=== PATIENT | male | born 1940 | race Caucasian/White ===

== ENCOUNTER → 2021-03-30 06:57 | Outpatient (CLI) | payer MEDICARE, SELFPAY ==
--- NOTE | 2021-03-30 07:00 | ECHOD_ITS ---
Reason For Study: Dyspnea/SOB Procedure This was a 2D Doppler, Color Flow transthoracic echocardiogram. Exam performed in department. Left Ventricle Normal LV size. Left ventricular systolic function is normal. The estimated ejection fraction is 55 %. Stage 1 diastolic dysfunction. No regional wall motion abnormalities noted. Right Ventricle Normal RV size. Normal systolic function. Atria Normal left atrium. Normal right atrium. Mitral Valve Bileaflet diffuse mitral valve thickening. Mild (1+) eccentric mitral valve insufficiency. Tricuspid Valve Normal tricuspid valve. Mild (1+) tricuspid valve insufficiency. Pulmonary artery systolic pressure is 25 mmHg. Aortic Valve Trisinus/trileaflet aortic valve. Mild (1+) aortic valve insufficiency. Pulmonic Valve Normal pulmonic valve. Great Vessels Mildly dilated aortic root. The pulmonary artery is normal size. Normal inferior vena cava. Pericardium/Pleural No pericardial effusion. MMode/2D Measurements & Calculations LVIDd: 5.1 cm IVSd: 1.2 cm Ao root diam: 3.8 cm LVIDs: 3.6 cm LVPWd: 0.88 cm RVDd: 3.6 cm FS: 30.7 % LAV(MOD-bp): 45.1 ml LVAd ap4: 29.6 cm2 SV(MOD-sp4): 50.6 ml LAV(MOD-bp) Indexed: 19.5 ml/m2 LVLd ap4: 8.6 cm LAV(MOD-sp2): 35.4 ml EDV(MOD-sp4): 83.1 ml LAV(MOD-sp4): 46.3 ml EDV(sp4-el): 86.4 ml LVAs ap4: 16.9 cm2 LVLs ap4: 7.7 cm ESV(MOD-sp4): 32.4 ml ESV(sp4-el): 31.5 ml EF(MOD-sp4): 60.9 % EF(sp4-el): 63.6 % SV(sp4-el): 55.0 ml LA A4 area: 19.0 cm2 LA dimension(2D): 4.0 cm RA A4 area: 11.7 cm2 Doppler Measurements & Calculations MV E max paxton: 48.3 cm/sec Lat Peak E' Paxton: 5.1 cm/sec Med Peak E' Paxton: 4.2 cm/sec MV A max paxton: 64.2 cm/sec E/E' lat: 9.5 E/E' med: 11.5 MV E/A: 0.75 Ao V2 max: 115.8 cm/sec AI max paxton: 383.3 cm/sec LV V1 max: 94.7 cm/sec Ao max P.4 mmHg AI max P.8 mmHg LV V1 max P.6 mmHg Ao V2 mean: 85.2 cm/sec Ao mean P.1 mmHg AI dec slope: 212.3 cm/sec2 Ao V2 VTI: 24.3 cm AI P1/2t: 528.8 msec PA V2 max: 118.4 cm/sec TR max paxton: 236.3 cm/sec TR max P.3 mmHg ECHO/Echo Complete Interpretation Summary Normal LV size. Left ventricular systolic function is normal. The estimated ejection fraction is 55 %. Stage 1 diastolic dysfunction. Mild (1+) aortic valve insufficiency. Pulmonary artery systolic pressure is 25 mmHg. Hepatic cyst noted Ordering Physician: Jeff Cody Referring Physician: Jorge Gill Performed By: Nava Dela Cruz, HUBERTCS, RVT
--- NOTE | 2021-03-30 11:55 | STRESSREP ---
Stress Test Report 80-year-old man with a history of known coronary artery disease status post previous angioplasty and stenting of the right coronary artery. Stress protocol: Resting EKG demonstrates normal sinus rhythm with a rate of 67 bpm normal intervals are noted resting blood pressure is 126/82 mmHg. The patient exercised according to regular Saman protocol, for a total duration of 3 minutes and 40 seconds. Patient completed 40 seconds into stage II of the Saman protocol the maximum heart rate attained was 1 and 33 bpm which was 95% of max infected heart rate the maximum workload was 6.2 metabolic equivalents. At rest there were no ST or T wave changes noted suggest ischemia and at peak exercise upsloping ST changes were noted with did not meet the criteria for ischemia. No clinical angina was noted the test was terminated due to shortness of breath. The peak blood pressure was 180/92 mmHg with a rate-pressure product of 20,250. Myocardial perfusion protocol. 14.1 mCi of technetium 99m sestamibi was injected at rest. The patient exercised according to regular Saman protocol for total duration of 3 minutes and 40 seconds and at peak exercise 44.5 mCi of technetium 99m sestamibi was injected stress images were obtained stress and rest images were reconstructed and compared in the short axis vertical long and horizontal long axis. Gated images were also obtained per Perfusion SPECT analysis: Review of the stress images demonstrate mild reduction of the mid inferior wall in terms of perfusion. The rest of the alba namely the septum anterior wall and lateral wall appeared to be well perfused. The resting images demonstrate normalization of perfusion in all alba suggesting mild mid inferior ischemia. Gated SPECT analysis: The gated ejection fraction is 58%. Conclusion: Abnormal exercise myocardial perfusion scan with mild mid inferior ischemia noted at a low to moderate workload. Preserved ejection fraction.
== END ==
PROVIDERS: PCP Family Medicine; Referring Provider Internal Medicine Cardiovascular Disease; Visit Provider Internal Medicine Cardiovascular Disease
DX: I25.10 Atherosclerotic heart disease of native coronary artery without angina pectoris (principal); I25.2 Old myocardial infarction; Z95.5 Presence of coronary angioplasty implant and graft; R06.02 Shortness of breath
CPT/HCPCS: 78452; 93017; 93306; A9500; A4216

== ENCOUNTER 2021-04-06 07:49 | Day surgery (SDC) | payer MEDICARE, SELFPAY ==
--- NOTE | 2021-04-01 10:11 | RAD_ITS ---
STUDY: X-RAY CHEST REASON FOR EXAM: Male, 80 years old. CAD TECHNIQUE: PA and lateral views of the chest. COMPARISON: None. FINDINGS: There are interstitial changes of the lungs. There is no demonstrated pleural abnormality. Normal size heart. Normal mediastinum and josafat. Normal visualized pulmonary arteries. Normal visualized aortic arch and descending thoracic aorta. There are diffuse degenerative changes of the visualized thoracic spine. Normal visualized ribs, clavicles, and shoulders. There is no demonstrated abnormality of the visualized soft tissue structures of the upper abdomen. RAD/Chest PA and Lateral IMPRESSION: Chronic interstitial changes, no superimposed acute pulmonary process Electronically Signed: Tim Estrella MD at 17:21 EST , Service support ,
[2021-04-01 11:40] LABS: Absolute Lymphocyte Count 1.34 X10^3/uL (0.83-4.51); Absolute Neutrophil Count 4.2 X10^3/uL (2.0-7.7); Basophil# 0.06 X10^3/uL; Basophil% 0.9 % (0-1); Eosinophil# 0.19 X10^3/uL; Hematocrit 46.1 % (40-54); Lymphocyte # 1.34 X10^3/ul (0.83-4.51); Lymphocyte % 21.1 % (19-41); Mean Corp Hgb Conc 34.7 g/dL (32-36); Mean Corpuscular Hgb 32.9 pg (27.0-32.0); Mean Corpuscular Volume 94.7 fL (80-94); Mean Platelet Vol. 10.1 fl (6.2-12.0); Monocyte# 0.55 X10^3/uL; Monocyte% 8.7 % (0-10); NRBC Flagged by Analyzer 0 % (0-5); Neutrophil # 4.17 X10^3/uL (2.7-7.7); Neutrophil % 65.8 % (47-70); Platelet Count 225 K/mm3 (150-450); RBC Distribution Width CV 13.6 % (11.6-14.6); RBC Distribution Width SD 47.6 fl (35.1-43.9); Red Blood Count 4.87 M/mm3 (4.6-6.2); White Blood Count 6.3 K/mm3 (4.4-11.0)
[2021-04-01 12:01] LABS: Anion Gap 7 (5-15); BUN 25 mg/dL (7-18); BUN/Creat Ratio 16.8 RATIO (10-20); Calcium,Total 9.3 mg/dL (8.5-10.1); Chloride 108 mmol/L (98-107); Creatinine, Serum 1.49 mg/dL (0.70-1.30); EST Glomerular Filtration Rate 48 mL/min (>60); Est Glom Filt Rate - Afr Amer 58 mL/min (>60); Glucose 117 mg/dL (74-106); Potassium 4.3 mmol/L (3.5-5.1); Sodium Level 139 mmol/L (136-145)
[2021-04-03 10:13] VITALS: BMI 35.2
--- NOTE | 2021-04-06 09:44 | CL.D_ITS ---
Patient Name: EDINSON WHEELER Study Date: 04/06/2021 Performing: Jeff Cody MD Ht: 70.86 inches 180 cm : 1940 Wt: 253.53 lbs 115 kg Age: 80 Gender: male BSA: 2.33 PROCEDURE(S) PERFORMED UN51-DUD/COR/LV CLINICAL PROFILE AND INDICATIONS Indications: Suspected CAD Heart Failure: None Stress/Imaging Date: 03/30/2021tress Test with SPECT MPI: Positive Low Risk CAD Presentations: Other: sob CONCLUSIONS Non obstructive coronary arteries Deviously placed right coronary artery stent is patent RECOMMENDATIONS Medical therapy DESCRIPTION OF PROCEDURE The patient arrived to the procedure lab. The risks and benefits of the procedure as well as a full d escription of our services here and current unavailability of surgical backup were fully explained to the patient and/or their significant other prior to the catheterization. The Timeout was completed, verifying the correct patient and procedure. The patient's procedural site was prepped and draped in the usual fashion. Local anesthetic was given subcutaneously to right radial region with Lidocaine 2% . Using a modified Seldinger technique, arterial access was obtained via the right radial artery, a 6 Fr sheath was inserted. Right Coronary Artery selective angiography was then performed in multiple v iews using a 5 Fr. 4.0 [place] catheter. Left Coronary Artery selective angiography was performed in mu ltiple views using a 5 Fr. 4.0 [place] catheter. Left Ventriculography was performed in [place] projection using a 5 Fr. [place] catheter. LV to AO pullback pressures were then recorded.The arterial sheath was pulled and a TR Band was applied for hemostasis CORONARY ANGIOGRAPHY DOMINANCE: Right Dominant LEFT HEART ASSESSMENT Left Ventricular Ejection Fraction: by LV Gram 60 % Normal LV wall motion Normal Left Ventricular systolic function LEFT MAIN: Angiographically normal LEFT ANTERIOR DESCENDING ARTERY: Mild luminal irregularities CIRCUMFLEX ARTERY: No significant disease noted RIGHT CORONARY ARTERY: Slow flow noted PROX RCA: Previously placed stent is patent COMPLICATIONS No Complications PROCEDURE MEDICATIONS Versed 1 mg IV Fentanyl 50 mcg IV Versed 1 mg IV Oxygen: 2 L/min via nasal cannula Baby Aspirin (81mg) 1 Tabs PO @ 04/06/2021 08:14:09 Heparin given IA 04/06/2021 09:29:01 Verapamil 2.5mg, Ntg 100mcgs, 3000 units of Heparin given IA 04/06/2021 09:29:01 SUMMARY OF HEMODYNAMIC DATA Time AIR REST ECG 08:10:38 ECG 08:11:58 AO 109/71 (88) SA 09:30:56 LV 118/14, 18 09:37:00 LV 121/11, 18 09:37:07 LV 123/15, 23 09:37:34 LV 109/14, 21 09:37:40 LVp 102/14, 24 09:37:45 AOp 102/56 (82) 09:37:50 Signed By Jeff Cody MD On 04/06/2021 9:43:59 AM Jeff Cody MD
== END 2021-04-06 11:20 | disposition home or self-care (01) ==
LOC: CLSP 07:50
PROVIDERS: PCP Family Medicine; Referring Provider Internal Medicine Cardiovascular Disease; Visit Provider Internal Medicine Cardiovascular Disease
DX: I25.10 Atherosclerotic heart disease of native coronary artery without angina pectoris (principal); E66.9 Obesity, unspecified; I25.2 Old myocardial infarction; E78.5 Hyperlipidemia, unspecified; Z95.5 Presence of coronary angioplasty implant and graft; I45.10 Unspecified right bundle-branch block; N18.9 Chronic kidney disease, unspecified; I12.9 Hypertensive chronic kidney disease with stage 1 through stage 4 chronic kidney disease, or unspecified chronic kidney disease; Z87.891 Personal history of nicotine dependence; R06.02 Shortness of breath
CPT/HCPCS: 36415; 71046; 80048; 85025; 93458; 99152; 99153; J7040; Q9967; C1769; C1894

== ENCOUNTER → 2022-03-22 | Outpatient (CLI) | payer MEDICARE, SELFPAY ==
--- NOTE | 2022-03-22 16:07 | US_ITS ---
STUDY: SCROTUM ULTRASOUND REASON FOR EXAM: Male, 81 years old. R TESTICULAR PAIN TECHNIQUE: Ultrasound evaluation of the scrotum was performed with color Doppler and static keller-scale imaging. COMPARISON: None. FINDINGS: RIGHT TESTICLE INTRATESTICULAR: There is a normal size of the right testicle. The right testicle measures 2.9 x 2.7 x 1.5 cm. There is a known homogeneous appearance of the right testicle with focal area of hypoechoic tissue measuring 0.5 x 0.8 with a suggestion of possible calcification. There is a small cyst of the tunica albuginea. This measures 4.7 x 1.7 mm. There is normal arterial and normal venous vascularity. There is no demonstrated right testicular mass or cyst. EXTRATESTICULAR: The epididymis is normal in size. The epididymis head measures 9 x 0 0.9-0.5 cm. There is normal vascularity of the epididymis. There is no demonstrated epididymal cystic structure. There is no demonstrated hydrocele. There is no demonstrated varicocele. There is no demonstrated extratesticular mass or cyst. LEFT TESTICLE INTRATESTICULAR: There is a normal size of the left testicle. The left testicle measures 2.1 x 2.5 x 1.8 cm. There is a homogenous echotexture. There is normal arterial and normal venous vascularity. There is no demonstrated left testicular mass or cyst. EXTRATESTICULAR: The epididymis is normal in size. The epididymis head measures 1 x 0.9 x 0.9 cm. There is normal vascularity of the epididymis. There is no demonstrated epididymal cystic structure. There is a small hydrocele. There is no demonstrated varicocele. There is no demonstrated extratesticular mass or cyst. US/Testicular with Arterial Flow IMPRESSION: Inhomogeneous appearance of the right testicle which is suspicious for possibly of an intratesticular mass. Potentially neoplasm or early metastatic disease could have this appearance and/or may represent edema in the setting of trauma. Potentially an atypical presentation of tubular ectasia of the rete testis could have this appearance. Small left hydrocele. No torsion. Small left hydrocele. Electronically Signed: Trina Hutson MD at 6:49 EST ,
== END | disposition home or self-care (01) ==
LOC: US 16:06
PROVIDERS: PCP Family Medicine; Referring Provider Family Medicine; Visit Provider Family Medicine
DX: N50.811 Right testicular pain (principal)
CPT/HCPCS: 76870; 93976

== ENCOUNTER → 2022-04-29 | Outpatient (CLI) | payer MEDICARE, SELFPAY ==
[2022-04-29 13:35] LABS: PSA,Total- Diagnostic 0.09 ng/mL (0.0-4.0)
== END | disposition home or self-care (01) ==
LOC: LAB 11:33
PROVIDERS: PCP Family Medicine; Referring Provider Registered Nurse; Visit Provider Registered Nurse
DX: C61 Malignant neoplasm of prostate (principal)
CPT/HCPCS: 36415; 84153

== ENCOUNTER 2022-05-08 15:40 | Inpatient (IN) | payer MEDICARE, SELFPAY ==
[2022-05-08] VITALS (11 sets, daily range): BP systolic 138–162; BP diastolic 85–104; PULSE 79–102; RESP 18–26; TEMP 36–37.1; O2SAT 85–99; BMI 34.8; BMI 34.0
--- NOTE | 2022-05-08 16:24 | NURSING ---
NO OLD EKGS
--- NOTE | 2022-05-08 16:29 | EDS_ITS ---
HPI History of Present Illness Chief Complaint: Shortness of Breath Informant: patient Onset/Context/Timing Onset: Days (3) Activity at onset: gradual and onset Timing: Intermittent and Lasts (varies) Quality: Positive for Heaviness and Pressure Location: Substernal (w/o radiation) Current Severity: Gone Maximum Severity: Moderate Worsened By: Nothing Relieved By: Nothing Associated Symptoms: Negative for Nausea, Vomiting, Diaphoresis, Dyspnea (not during CP episodes), Cough, Fever, Lightheadedness or Palpitations Narrative Narrative: Patient started having episodes of chest pressure 3 days ago, the next day he was also having episodes of dyspnea. The chest discomfort and the dyspnea are occurring separately and seem unrelated when each occurs. The dyspnea is with exertion, better with rest. He states when he is sitting or lying he is breathing okay. The symptoms have been persistent however and this is unusual for him. He did have a remote cardiac stent. He takes aspirin daily. He had a remote clot in the leg but is not anticoagulated any longer for that. He denies any risk factors for venous thromboembolism recently, nor pain/swelling in either of his legs. No coughing or fevers. No known contact with anyone with COVID or influenza which are highly prevalent in the area right now. PE Risk Factors: Negative for Recent Travel/Surgery, Recent Immobilization, Prior DVT or PE, Cancer or OCP + Smoking + >/=35 [facility] Medical History Atherosclerotic heart disease of [place] coronary artery without angina pectoris Chronic back pain Chronic kidney disease (CKD) Essential hypertension Gout History of ST elevation myocardial infarction (STEMI) Hyperlipidemia Obesity Old inferior wall myocardial infarction Prostate cancer Right bundle branch block (RBBB) Varicose veins of right lower extremity Home Medications allopurinol 300 mg tablet 300 mg PO DAILY 03/02/21 [History Last Taken Unknown] aspirin 81 mg tablet,delayed release (Adult Aspirin Regimen) 81 mg PO DAILY 03/02/21 [History Last Taken Unknown] atorvastatin 40 mg tablet 40 mg PO QHS 03/02/21 [History Last Taken Unknown] bisoprolol fumarate 5 mg tablet 5 mg PO DAILY 03/02/21 [History Last Taken Unknown] cholecalciferol (vitamin D3) 125 mcg (5,000 unit) capsule 125 mcg PO DAILY 03/02/21 [History Last Taken Unknown] coenzyme Q10 100 mg capsule (Co Q-10) 100 mg PO DAILY 03/02/21 [History Last Taken Unknown] fexofenadine 180 mg tablet (Leslye Allergy) 180 mg PO DAILY 03/02/21 [History Last Taken Unknown] hydrochlorothiazide 12.5 mg tablet 12.5 mg PO DAILY 03/02/21 [History Last Taken Unknown] losartan 50 mg tablet 50 mg PO DAILY 03/04/21 [History Last Taken 04/06/21] Allergy/AdvReac Type Severity Reaction Status Date / Time Sulfa (Sulfonamide Allergy unknown Verified 05/08/22 15:42 Antibiotics) Family History Father Heart disease Myocardial infarction, Onset Age: 70 Surgical History History of coronary artery stent placement (08/05/15) History of left heart catheterization (04/06/21) History of total knee arthroplasty Status post endovenous radiofrequency ablation (RFA) of saphenous vein (04/2008) Social History Smoking Status: Former smoker ROS ROS ED Constitutional Constitutional ED: Denies chills or fever(s) Eyes Eyes: Denies change in vision or diplopia ENT ENT ED: Denies rhinorrhea or sore throat Cardiovascular Cardiovascular: Reports as per HPI and chest pain; Denies leg edema, orthopnea or palpitations Respiratory/Chest Respiratory/Chest: Reports dyspnea on exertion; Denies cough or orthopnea Gastrointestinal Gastrointestinal: Denies abdominal pain, diarrhea, nausea or vomiting Genitourinary Genitourinary ED: Denies dysuria or hematuria Musculoskeletal Musculoskeletal: Denies back pain or neck pain Integumentary Denies abscess or rash Neurologic Neurologic: Denies headache(s), paresthesias or weakness Psychiatric Psychiatric: Denies anxiety or suicidal thoughts EXAM Physical Exam Const Vital Signs: 05/08/22 15:41 05/08/22 16:22 05/08/22 16:22 Temperature 98.7 F 98.7 F Temperature Source Temporal Temporal Pulse Rate 102 H 96 Respiratory Rate 26 H 21 H Respiratory Effort Respiratory Depth Respiratory Pattern Blood Pressure 156/104 H 144/87 H Blood Pressure Mean 121 106 Pulse Ox 85 98 99 Oxygen Delivery Method Room Air Nasal Cannula Nasal Cannula Oxygen Flow Rate (L/min) 3 3 05/08/22 16:25 05/08/22 17:00 05/08/22 18:00 Temperature 98.6 F 98.5 F Temperature Source Temporal Temporal Pulse Rate 88 87 Respiratory Rate 20 H 21 H Respiratory Effort Short of Breath Respiratory Depth Deep Respiratory Pattern Tachypnea Blood Pressure 140/85 H 138/100 H Blood Pressure Mean 103 112 Pulse Ox 99 99 Oxygen Delivery Method Nasal Cannula Nasal Cannula Oxygen Flow Rate (L/min) 3 3 05/08/22 19:00 05/08/22 19:00 05/08/22 20:07 Temperature 97.1 F L 97.7 F L 97.8 F Temperature Source Oral Oral Oral Pulse Rate 84 93 85 Respiratory Rate 23 H 21 H 23 H Respiratory Effort Respiratory Depth Respiratory Pattern Blood Pressure 139/100 H 151/93 H 162/102 H Blood Pressure Mean 113 112 122 Pulse Ox 95 95 97 Oxygen Delivery Method Nasal Cannula Nasal Cannula Nasal Cannula Oxygen Flow Rate (L/min) 3 3 3 05/08/22 20:08 Temperature 97.8 F Temperature Source Oral Pulse Rate 85 Respiratory Rate 23 H Respiratory Effort Respiratory Depth Respiratory Pattern Blood Pressure 162/102 H Blood Pressure Mean 122 Pulse Ox 98 Oxygen Delivery Method Nasal Cannula Oxygen Flow Rate (L/min) 3 Positive well nourished and well developed General Appearance ED: well developed and NAD HEENT Reports moist mucous membranes normocephalic and atraumatic Eyes PERRL and EOMs intact bilaterally Neck full ROM and supple Resp normal respiratory effort Resp Narrative: Decreased breath sounds at the bases with a few end expiratory wheezes there but otherwise clear Effort and Inspection: able to speak in complete sentences Cardio regular rate, regular rhythm and no murmurs Rate: Negative for bradycardia or tachycardic GI non-tender and non-distended GI Narrative: Abdominal obesity Auscultation: normoactive bowel sounds Palpation: soft Back/Spine no CVA tenderness General Back: other FROM Extremity normal to inspection General Extremety ED: Negative for edema, pulses abnormal or tenderness General Extremity: Negative for edema or pulses abnormal Neuro oriented x3, CN's II-XII intact bilaterally and no sensory deficits noted Sensorium / Orientation: awake and alert Motor Exam: strength 5/5 throughout Psych mental status grossly normal Skin no rashes or lesions noted and no wounds Skin Narrative: Rodriguez-colored skin. Patient and state they live in [place] the majority of the year and this is normal for him, he tans very easily. They state this is not different. Heart Score History: Moderately Suspicious Age: >/= 65 years Risk Factors: >/= 3 Risk Factors or History of CAD Score: 5 MDM MDM MDM Narrative Medical decision making narrative: When the patient's chest x-ray returned normal on my interpretation, I ordered a D-dimer as well. His labs then slowly came back, his troponin is elevated abnormal, his EKG shows no STEMI, but it does show changes with nonspecific abnormalities that appear to be repolarization abnormalities or related to a right bundle branch block compared with his old one although this was 2 years ago. He is not having any symptoms at rest right now, but my concern is that this is all cardiac in etiology. However, his D-dimer came back extremely elevated so he was sent for CT angiography of the chest, confirming that he has bilateral pulmonary emboli. In this context, the elevated troponin may be more indicative of heart strain. We will place him on a heparin drip and admit him discussed with hospitalist. Lab Data Attestation: I reviewed the patient's lab results. Labs: Laboratory Results - last 24 hr 05/08/22 05/08/22 05/08/22 17:50 17:50 17:50 WBC 8.8 RBC 5.09 Hgb 16.8 H Hct 48.1 MCV 94.5 H MCH 33.0 H MCHC 34.9 RDW Std Deviation 48.0 H RDW Coeff of Lucia 14.0 Plt Count 154 MPV 9.5 Immature Gran % (Auto) 0.200 Neut % (Auto) 75.8 H Lymph % (Auto) 12.7 L [place] % (Auto) 8.1 Eos % (Auto) 2.3 Baso % (Auto) 0.9 Absolute Neuts (auto) 6.6 Absolute Lymphs (auto) 1.11 Nucleated RBC % 0 D-Dimer Quant (PE/DVT) Sodium 139 Potassium 4.2 Chloride 107 Carbon Dioxide 26.0 Anion Gap 6 BUN 32 H Creatinine 1.56 H Estim Creat Clear Calc 38.88 Est GFR (MDRD) Af Amer 55 L Est GFR (MDRD) Non-Af 45 L BUN/Creatinine Ratio 20.5 H Glucose 122 H Calcium 9.5 Troponin I High Sens 194 H* B-Natriuretic Peptide 49.3 05/08/22 05/08/22 18:40 20:00 WBC RBC Hgb Hct MCV MCH MCHC RDW Std Deviation RDW Coeff of Lucia Plt Count MPV Immature Gran % (Auto) Neut % (Auto) Lymph % (Auto) [place] % (Auto) Eos % (Auto) Baso % (Auto) Absolute Neuts (auto) Absolute Lymphs (auto) Nucleated RBC % D-Dimer Quant (PE/DVT) > 20.00 H* Sodium Potassium Chloride Carbon Dioxide Anion Gap BUN Creatinine Estim Creat Clear Calc Est GFR (MDRD) Af Amer Est GFR (MDRD) Non-Af BUN/Creatinine Ratio Glucose Calcium Troponin I High Sens 219 H* B-Natriuretic Peptide Radiography Chest X-Ray - ED: 1 View, Read by ED Physician, No Acute Disease and No Infiltrates Diagnostic Testing: Clinical Impression(s) from Imaging Studies Chest X-Ray 05/08/22 17:15 IMPRESSION: No radiographic evidence of acute cardiopulmonary disease. Electronically Signed: Ayo Mooney MD at 17:35 EST , Chest CTA 05/08/22 19:58 IMPRESSION: Low-density filling defects seen within the distal mainstem pulmonary arteries extending into the upper and lower lobe segmental pulmonary arteries bilaterally. Bilateral pulmonary emboli. There is enlargement of the right ventricle compatible with right heart strain. Electronically Signed: Ayo Mooney MD at 20:53 EST , Rhythm Strip Rhythm Strip: Sinus Rhythm Rate: 95 Ectopy: None EKG Initial EKG: Attestation: I personally reviewed and interpreted this EKG as follows: Interpretation: Sinus Rhythm, No Acute Injury Pattern, RBBB, Inverted T- Waves (ant-sept, inf) and Non-Specific ST Changes Prior EKG tracings: available for review Prior: Changed (prior showed IRBBB and no T wave inv's - 04/17/20) Discharge Plan Dx/Rx/DC Orders Clinical Impression: Bilateral pulmonary embolism, Elevated troponin, Intermittent chest pain Disposition Disposition: Acute Care Hospital [facility]
[2022-05-08] MEDS: Aspirin 81 MG TAB.CHEW 162 MG PO (17:02)
--- NOTE | 2022-05-08 17:15 | RAD_ITS ---
EXAM: XR CHEST, 2 VIEWS CLINICAL INDICATION: chest pain, dyspnea TECHNIQUE: Frontal and lateral views of the chest. This report was created using Myze report generation technology. COMPARISON: 04/01/2021 FINDINGS: LUNGS AND PLEURAL SPACES: Unremarkable. No consolidation or edema. No pneumothorax. No effusion. HEART: Unremarkable. Cardiac silhouette not enlarged. MEDIASTINUM: Central airways and mediastinal contour are unremarkable. BONES/JOINTS: Unremarkable. SOFT TISSUES: Unremarkable. RAD/Chest PA and Lateral IMPRESSION: No radiographic evidence of acute cardiopulmonary disease. Electronically Signed: Ayo Mooney MD at 17:35 EST ,
[2022-05-08 18:01] LABS: Absolute Lymphocyte Count 1.11 X10^3/uL (0.83-4.51); Absolute Neutrophil Count 6.6 X10^3/uL (2.0-7.7); Basophil# 0.08 X10^3/uL; Basophil% 0.9 % (0-1); Eosinophils% 2.3 % (0-5); Hematocrit 48.1 % (40-54); Hemoglobin 16.8 g/dL (13.0-16.5); Lymphocyte # 1.11 X10^3/ul (0.83-4.51); Lymphocyte % 12.7 % (19-41); Mean Corp Hgb Conc 34.9 g/dL (32-36); Mean Corpuscular Volume 94.5 fL (80-94); Mean Platelet Vol. 9.5 fl (6.2-12.0); Monocyte# 0.71 X10^3/uL; Monocyte% 8.1 % (0-10); NRBC Flagged by Analyzer 0 % (0-5); Neutrophil # 6.64 X10^3/uL (2.7-7.7); Neutrophil % 75.8 % (47-70); Platelet Count 154 K/mm3 (150-450); Red Blood Count 5.09 M/mm3 (4.6-6.2); White Blood Count 8.8 K/mm3 (4.4-11.0)
[2022-05-08 18:20] LABS: Anion Gap 6 (5-15); BUN 32 mg/dL (7-18); BUN/Creat Ratio 20.5 RATIO (10-20); Calcium,Total 9.5 mg/dL (8.5-10.1); Chloride 107 mmol/L (98-107); Creatinine, Serum 1.56 mg/dL (0.70-1.30); EST Glomerular Filtration Rate 45 mL/min (>60); Est Glom Filt Rate - Afr Amer 55 mL/min (>60); Estimated Creatinine Clearance 38.88 ml/min; Glucose 122 mg/dL (74-106); Potassium 4.2 mmol/L (3.5-5.1); Sodium Level 139 mmol/L (136-145); Troponin-I HS (w/2H Reflex) 194 pg/mL (3.0-78.0)
[2022-05-08 18:21] LABS: BNP,B-Type NATRIURETIC PEPTIDE 49.3 pg/mL (0-100)
--- NOTE | 2022-05-08 18:21 | ED.RN ---
LAB CALLED TROPONIN OF 194. DR MORRIS AWARE
--- NOTE | 2022-05-08 19:42 | PCM.HP.STD ---
HPI - General General Date of Admission: 05/08/22 Date of Service: 05/08/22 Chief Complaint: Dyspnea, chest pain. HPI Narrative The patient is an 81 y/o M w/ PMHx: Obesity, CKD stage III unclear subtype, HTN, HLD, Gout, Hx Prostate CA, CAD s/p PCI, Former tobacco use who presents to the [facility] ED on 05/08/22 with history of onset dyspnea ongoing for the last 3 days which he specifically reports is better when he rests and worse when he is active however does have associated chest heaviness and pressure in the substernal region without any radiation with no associated nausea, emesis, diaphoresis, cough, lightheadedness or any recent fevers or chills however given ongoing prompted ED evaluation. He denies any recent risk factors for VTE or any recent ill contacts with COVID for influenza. Patient denies any specific chest discomfort or pleuritic pain with deep inspiratory effort. Work-up in the ED included T98.7, heart rate initially 102, BP 156/104, respiratory rate 26, initially 85% on room air with improvement to 90% on 3 L nasal cannula, CBC with WC 8.8, hemoglobin 16.8, platelet 154 without marked shift, D-dimer initially pending upon requested evaluation of patient however resulted greater than 20 with follow-up CTPA with low-density filling defects within the distal mainstem pulmonary arteries extending to the upper and lower lobe segmental pulmonary arteries bilaterally, bilateral pulmonary emboli, enlargement of the RV compatible with right heart strain, BMP with BUN/creatinine 32/1.56, glucose 122, initial troponin 194, BNP 49.3, chest x-ray with no acute cardiopulmonary findings, EKG with RBBB with nonspecific ST-T wave alterations, T wave inversions. In the ED patient ministered aspirin 162 mg p.o. x1 and patient eventually started on heparin drip with a bolus. Initially ED did discuss case with cardiology prior to D-dimer being elevated and CTPA being obtained with noted pulmonary emboli. [facility] Medical History (Updated 05/08/22 @ 22:31 by Aysha Woodward) Atherosclerotic heart disease of [place] coronary artery without angina pectoris Cancer Chronic back pain Chronic kidney disease (CKD) Coronary artery disease DVT (deep venous thrombosis) Essential hypertension Former smoker Gout History of ST elevation myocardial infarction (STEMI) Hyperlipidemia Hypertension Myocardial infarct Obesity Old inferior wall myocardial infarction Prostate cancer Pulmonary embolism Right bundle branch block (RBBB) Varicose veins of right lower extremity Home Medications allopurinol 300 mg tablet 300 mg PO DAILY 03/02/21 [History Last Taken Unknown] aspirin 81 mg tablet,delayed release (Adult Aspirin Regimen) 81 mg PO DAILY 03/02/21 [History Last Taken Unknown] atorvastatin 40 mg tablet 40 mg PO QHS 03/02/21 [History Last Taken Unknown] bisoprolol fumarate 5 mg tablet 5 mg PO DAILY 03/02/21 [History Last Taken Unknown] cholecalciferol (vitamin D3) 125 mcg (5,000 unit) capsule 125 mcg PO DAILY 03/02/21 [History Last Taken Unknown] coenzyme Q10 100 mg capsule (Co Q-10) 100 mg PO DAILY 03/02/21 [History Last Taken Unknown] fexofenadine 180 mg tablet (Leslye Allergy) 180 mg PO DAILY 03/02/21 [History Last Taken Unknown] hydrochlorothiazide 12.5 mg tablet 12.5 mg PO DAILY 03/02/21 [History Last Taken Unknown] losartan 50 mg tablet 50 mg PO DAILY 03/04/21 [History Last Taken 04/06/21] Allergy/AdvReac Type Severity Reaction Status Date / Time Sulfa (Sulfonamide Allergy unknown Verified 05/08/22 15:42 Antibiotics) Family History (Updated 05/08/22 @ 23:[address] Salma Botello MD) Father Heart disease Myocardial infarction, Onset Age: 70 Mother Dementia Surgical History (Updated 05/08/22 @ 22:31 by Aysha Woowdard) History of appendectomy History of cholecystectomy History of coronary artery stent placement (08/05/15) History of left heart catheterization (04/06/21) History of total knee arthroplasty Status post endovenous radiofrequency ablation (RFA) of saphenous vein (04/2008) Social History (Updated 05/08/22 @ 23:[address] Salma Botello MD) Smoking Status: Former smoker how long ago did patient quit smoking: Quit 1976, started 17 y/o, smoked 2 ppd until quit. alcohol intake: never substance use type: does not use ROS ROS Narrative Admission Review of Systems: CONSTITUTIONAL: No weight loss, fever, chills,+ weakness or fatigue. HEENT: Eyes: No visual loss, blurred vision, double vision or yellow sclerae. Ears, Nose, Throat: No hearing loss, sneezing, congestion, runny nose or sore throat. SKIN: No rash or itching, lesions, wounds. CARDIOVASCULAR: + chest pain, chest pressure or chest discomfort, No palpitations, edema, orthopnea, syncopal events. RESPIRATORY: + Shortness of breath, No cough or sputum, wheezing, hemoptysis. GASTROINTESTINAL: No anorexia, nausea, vomiting or diarrhea, abdominal pain, melena, BRBPR. GENITOURINARY: No dysuria, frequency, urgency or retention. NEUROLOGICAL: No headache, dizziness, syncope, paralysis, ataxia, numbness or tingling in the extremities, focal weakness, change in bowel or bladder control, seizure. MUSCULOSKELETAL: + muscle, back pain, joint pain or stiffness. HEMATOLOGIC: No anemia, bleeding or bruising. LYMPHATICS: No enlarged nodes. No history of splenectomy. PSYCHIATRIC: No history of depression or anxiety. ENDOCRINOLOGIC: No reports of sweating, cold or heat intolerance. No polyuria or polydipsia. ALLERGIES: No history of asthma, hives, eczema or rhinitis. Vital Signs Vital Signs Vital Signs: 05/08/22 15:41 05/08/22 16:22 05/08/22 16:22 Temperature 98.7 F 98.7 F Temperature Source Temporal Temporal Pulse Rate 102 H 96 Respiratory Rate 26 H 21 H Respiratory Effort Respiratory Depth Respiratory Pattern Blood Pressure 156/104 H 144/87 H Blood Pressure Mean 121 106 Pulse Ox 85 98 99 Oxygen Delivery Method Room Air Nasal Cannula Nasal Cannula Oxygen Flow Rate (L/min) 3 3 05/08/22 16:25 05/08/22 17:00 05/08/22 18:00 Temperature 98.6 F 98.5 F Temperature Source Temporal Temporal Pulse Rate 88 87 Respiratory Rate 20 H 21 H Respiratory Effort Short of Breath Respiratory Depth Deep Respiratory Pattern Tachypnea Blood Pressure 140/85 H 138/100 H Blood Pressure Mean 103 112 Pulse Ox 99 99 Oxygen Delivery Method Nasal Cannula Nasal Cannula Oxygen Flow Rate (L/min) 3 3 Weight Weight: 250 lb Body Mass Index (BMI) 34.8 Physical Exam Narrative Physical Examination: General: Awake, alert, oriented x 3 and cooperative, seated upright in the ED bed, fatigued appearing. Skin: Normal color, normal turgor, no icterus, no cyanosis. HEENT: AT/NC, EOMI, PERRLA, MMM, no carotid bruits or JVD noted. Lungs: Diminished, greater bases, mildly increased respiratory rate but no distress, no rales, ronchi or wheezing. Heart: Mildly tachycardic with regular rhythm; no gallop, rub audible. Abdomen: Soft, obese, NTTP, ND, distant normal BS, no HSM. Extremities: No cyanosis, clubbing, or edema, no tenderness with palpation of bilateral calf regions. Neurological: Patient awake, alert, oriented as noted, cognitive function intact; pupils equally reactive to light and accommodation, cranial nerves II-XII grossly normal, moving all 4 extremities, no focal deficits, strength moderately to severely globally decreased secondary to acute presentation complaints Psychiatric: Affect appears fatigued otherwise normal, no acute evidence of depressive or anxiety feelings. Results Lab / Micro Data Result Diagrams: 05/08/22 17:50 05/08/22 17:50 Labs: Laboratory Results - last 24 hr 05/08/22 17:50: WBC 8.8, RBC 5.09, Hgb 16.8 H, Hct 48.1, MCV 94.5 H, MCH 33.0 H, MCHC 34.9, RDW Std Deviation 48.0 H, RDW Coeff of Lucia 14.0, Plt Count 154, MPV 9.5, Immature Gran % (Auto) 0.200, Neut % (Auto) 75.8 H, Lymph % (Auto) 12.7 L, [place] % (Auto) 8.1, Eos % (Auto) 2.3, Baso % (Auto) 0.9, Absolute Neuts (auto) 6.6, Absolute Lymphs (auto) 1.11, Nucleated RBC % 0 05/08/22 17:50: Sodium 139, Potassium 4.2, Chloride 107, Carbon Dioxide 26.0, Anion Gap 6, BUN 32 H, Creatinine 1.56 H, Estim Creat Clear Calc 38.88, Est GFR (MDRD) Af Amer 55 L, Est GFR (MDRD) Non-Af 45 L, BUN/Creatinine Ratio 20.5 H, Glucose 122 H, Calcium 9.5, Troponin I High Sens 194 H* 05/08/22 17:50: B-Natriuretic Peptide 49.3 Rhythm Strip Rhythm Strip: Sinus Rhythm Rate: 95 Ectopy: None Radiology Impression Chest X-Ray 05/08/22 17:15 IMPRESSION: No radiographic evidence of acute cardiopulmonary disease. Electronically Signed: Ayo Mooney MD at 17:35 EST , Assessment & Plan Assessment/Plan (1) Bilateral pulmonary embolism: PLAN: Plan The patient is an 81 y/o M w/ PMHx: Obesity, CKD stage III unclear subtype, HTN, HLD, Gout, Hx Prostate CA, CAD s/p PCI, Former tobacco use who presents to the [facility] ED on 05/08/22 with history of onset dyspnea ongoing for the last 3 days which he specifically reports is better when he rests and worse when he is active however does have associated chest heaviness and pressure in the substernal region without any radiation with no associated nausea, emesis, diaphoresis, cough, lightheadedness or any recent fevers or chills however given ongoing prompted ED evaluation. #1. Acute Hypoxia, Dyspnea, chest pressure/discomfort secondary to Acute Pulmonary Embolism, bilateral with associated cardiac strain with resulting Acute NSTEMI type II: EKG without acute findings, CXR no acute process, D-dimer elevated, CTPA with low-density filling defects within the distal mainstem pulmonary arteries extending to the upper and lower lobe segmental pulmonary arteries bilaterally, bilateral pulmonary emboli, enlargement of the RV compatible with right heart strain, initial troponin 194. Patient with no family history of hypercoagulable state. Patient notes no recent travel/VTE risk. Will admit to PCU, maintain on cardiac telemetry. Will obtain ECHO, BNP. Will continue to cycle cardiac enzymes. Will obtain COVID PCR as this certainly could be a risk for bilateral pulmonary emboli. Will continue therapeutic heparin drip regimen with pending AM insurance oral regimen investigation. Cardiology consulted per ED as initial concerns with NSTEMI, will defer consultation continuation at this time given significant strain logical explanation for cardiac troponin elevation; however, low threshold to re-involve if concerns arise. Of note, patient did have dyspnea primarily with exertion, specifically with stairs 4-5 months prior and was evaluated at that time per Dr. Cody, his deicer inspector pneumatic with no concerning findings per discussion with patient. #2. CAD: Status post PCI, will continue aspirin, statin, beta-natty, ARB, continue evaluation treatment as noted #1. #3. Hypertension: Continue home regimen including bisoprolol, losartan, hydrochlorothiazide, PRN hydralazine. #4. Hyperlipidemia: We will continue patient on statin therapy. #5. Chronic Kidney Disease Stage III, unclear subtype: Admission BUN/Cr 32/1.56, baseline renal function 1.4-1.5, repeat BMP in AM. #6. Allergic rhinitis: We will continue patient home Leslye regimen. #7. Former tobacco usage: Encourage continued tobacco cessation. #8. Gout: We will continue patient home allopurinol regimen. #9. Obesity: Weight loss and lifestyle changes encouraged. #10. DVT prophylaxis: SCDs, continue heparin drip as noted. #11. CODE status: Patient does not have healthcare power district attorney nor living will in place. Discussed CODE status at length including difference between FULL code, DNR-CCA and DNR-CC status. Following discussions about the differences in these status, requested Full Code status. Advanced Care Planning Face to Face Time: 16 minutes. Charges/Coding Visit Charges Inpatient E&M: 61321 Init Hosp L3 Procedures Hospitalists Procedures: 93181 Advncd Care Plan 30 Min
[2022-05-08 19:54] LABS: Reflex Troponin-HS? (from REC) Y
[2022-05-08 19:55] LABS: D-Dimer Quantitative (DVT/PE) > 20.00 FEU/ug/m (0.27-0.49)
--- NOTE | 2022-05-08 19:58 | CT_ITS ---
We are attempting to reach an attending provider to discuss findings. An addendum with communication details will be sent when the communication is complete. EXAM: CT ANGIOGRAPHY CHEST WITHOUT AND WITH INTRAVENOUS CONTRAST CLINICAL INDICATION: cp sob elevated d-dimer TECHNIQUE: Helically acquired angiography images were obtained of the chest without and with intravenous contrast. This CT exam was performed using one or more of the following dose reduction techniques: automated exposure control, adjustment of the mA and/or kV according to patient size, and/or use of iterative reconstruction technique. This report was created using [employer] report generation technology. MIP reconstructed images were created and reviewed. CONTRAST: IV 100mL [id number] COMPARISON: None. FINDINGS: PULMONARY ARTERIES: There is extensive a low-density filling defects within the distal main stem pulmonary arteries extending into the upper and lower lobe segmental pulmonary arteries bilaterally compatible with bilateral pulmonary emboli. Normal in caliber. AORTA: Unremarkable. Normal in caliber. No evidence of dissection. GREAT VESSELS OF AORTIC ARCH: Unremarkable. Normal in caliber. No evidence of dissection. LUNGS AND PLEURAL SPACES: There is a small left-sided effusion present. No mass. No pneumothorax. HEART: The right ventricle measures 4 cm wall the left ventricle measures 2.4 cm. No pericardial effusion. MEDIASTINUM: Unremarkable. No mediastinal or hilar adenopathy. Esophagus is unremarkable. No hiatal hernia. THYROID: Unremarkable. No thyroid lesions. BONES/JOINTS: See above. CT/CTA Chest W/WO Contrast IMPRESSION: Low-density filling defects seen within the distal mainstem pulmonary arteries extending into the upper and lower lobe segmental pulmonary arteries bilaterally. Bilateral pulmonary emboli. There is enlargement of the right ventricle compatible with right heart strain. Electronically Signed: Ayo Mooney MD at 20:53 EST ,
[2022-05-08 20:25] LABS: Troponin-I HS 219 pg/mL (3.0-78.0)
[2022-05-08] MEDS: HEPARIN/D5w 25,000 UNITS 25,000 UNITS/250 ML IV.SOLN. 10 UNITS CONT INF (21:23)
[2022-05-08] MEDS: Heparin Injection (Vial) 5,000 UNIT/ML VIAL 4000 UNIT IV (21:31)
[2022-05-08 21:44] LABS: Prothrombin Time (Protime)PT. 13.2 SECONDS (11.7-14.9)
--- NOTE | 2022-05-08 21:54 | ECHOD_ITS ---
Reason For Study: EMBOLI Procedure This was a 2D Doppler, Color Flow transthoracic echocardiogram. Exam performed portable in patient room. Left Ventricle Normal size and thickness. The left ventricular ejection fraction is 65 %. Diastolic function is indeterminate. Right Ventricle Severely dilated right ventricle. Severe global right ventricular systolic dysfunction. Atria Normal left atrium. The right atrium is moderately enlarged. Mitral Valve Trivial mitral valve insufficiency. Tricuspid Valve Mild tricuspid valve insufficiency. Pulmonary artery systolic pressure is 60 mmHg. Aortic Valve Aortic sclerosis, no stenosis. Trivial aortic valve insufficiency. Pulmonic Valve The pulmonic valve is not well visualized. Great Vessels Normal sized aortic root. Pericardium/Pleural No pericardial effusion. MMode/2D Measurements & Calculations LVIDd: 4.5 cm IVSd: 1.2 cm LVOT diam: 2.5 cm LVIDs: 2.3 cm LVPWd: 1.4 cm LVOT area: 4.8 cm2 FS: 49.4 % Ao root diam: 4.1 cm LAV(MOD-sp4): 36.4 ml LVAd ap4: 22.0 cm2 LVLd ap4: 8.3 cm EDV(MOD-sp4): 51.6 ml EDV(sp4-el): 49.1 ml LVAs ap4: 12.5 cm2 LVLs ap4: 7.0 cm ESV(MOD-sp4): 20.4 ml ESV(sp4-el): 19.0 ml EF(MOD-sp4): 60.5 % EF(sp4-el): 61.4 % SV(MOD-sp4): 31.2 ml SV(sp4-el): 30.2 ml LA A4 area: 16.3 cm2 LA dimension(2D): 3.6 cm Time Measurements MV dec time: 0.20 sec Doppler Measurements & Calculations MV E max paxton: 50.4 cm/sec Lat Peak E' Paxton: 10.8 cm/sec Med Peak E' Paxton: 7.2 cm/sec MV A max paxton: 65.8 cm/sec E/E' lat: 4.7 E/E' med: 7.0 MV E/A: 0.77 MV V2 max: 73.2 cm/sec MV dec slope: 256.7 cm/sec2 Ao V2 max: 114.8 cm/sec MV max P.1 mmHg Ao max P.3 mmHg MV V2 mean: 52.7 cm/sec Ao V2 mean: 77.9 cm/sec MV mean P.2 mmHg Ao mean P.8 mmHg MV V2 VTI: 24.5 cm Ao V2 VTI: 21.9 cm MVA(VTI): 3.7 cm2 AV (velocity ratio): 0.86 LYDIA(I,D): 4.2 cm2 LYDIA(V,D): 3.7 cm2 LV V1 max: 86.9 cm/sec SV(LVOT): 91.3 ml PA V2 max: 98.3 cm/sec LV V1 max P.0 mmHg PA V2 mean: 65.9 cm/sec LV V1 mean P.6 mmHg LV V1 mean: 60.1 cm/sec LV V1 VTI: 18.9 cm TR max paxton: 356.4 cm/sec TR max P.8 mmHg ECHO/Echo Complete Interpretation Summary The left ventricular ejection fraction is 65 %. Diastolic function is indeterminate. Severely dilated right ventricle. Severe global right ventricular systolic dysfunction. The right atrium is moderately enlarged. Mild tricuspid valve insufficiency. Pulmonary artery systolic pressure is 60 mmHg. Ordering Physician: Salma Botello Referring Physician: Jorge Gill Performed By: Prema Obrien RCS
[2022-05-08] MEDS: 0.9% Normal Saline 1,000 ML 100 ML IV (22:33)
[2022-05-08] MEDS: Atorvastatin Calcium 40 MG Tablet PO (23:17)
[2022-05-08] MEDS: Bisoprolol Fumarate 5 MG Tablet PO (23:18)
[2022-05-09] VITALS (10 sets, daily range): BP systolic 121–133; BP diastolic 68–84; PULSE 66–80; RESP 16–20; TEMP 35.9–36.7; O2SAT 94–97
[2022-05-09 00:46] LABS: Troponin-I HS 185 pg/mL (3.0-78.0)
[2022-05-09 04:52] LABS: Partial Thromboplast Time 57.6 Seconds (24.1-36.2)
[2022-05-09 06:10] LABS: Absolute Lymphocyte Count 1.27 X10^3/uL (0.83-4.51); Absolute Neutrophil Count 5.7 X10^3/uL (2.0-7.7); Basophil# 0.06 X10^3/uL; Basophil% 0.8 % (0-1); Eosinophil# 0.28 X10^3/uL; Eosinophils% 3.5 % (0-5); Hematocrit 45.6 % (40-54); Hemoglobin 15.6 g/dL (13.0-16.5); Lymphocyte # 1.27 X10^3/ul (0.83-4.51); Lymphocyte % 15.9 % (19-41); Mean Corp Hgb Conc 34.2 g/dL (32-36); Mean Corpuscular Hgb 32.4 pg (27.0-32.0); Mean Corpuscular Volume 94.8 fL (80-94); Mean Platelet Vol. 9.9 fl (6.2-12.0); Monocyte# 0.67 X10^3/uL; Monocyte% 8.4 % (0-10); NRBC Flagged by Analyzer 0 % (0-5); Neutrophil # 5.66 X10^3/uL (2.7-7.7); Platelet Count 154 K/mm3 (150-450); RBC Distribution Width CV 14.3 % (11.6-14.6); RBC Distribution Width SD 49.1 fl (35.1-43.9); Red Blood Count 4.81 M/mm3 (4.6-6.2)
[2022-05-09 06:33] LABS: ALB/GLOB Ratio 0.9 RATIO (0.9-2.4); AST(SGOT) 22 U/L (15-37); Alanine Aminotransfer ALT/SGPT 29 U/L (16-61); Albumin, Serum 3.3 g/dL (3.2-5.0); Alkaline Phosphatase 110 U/L (45-117); Anion Gap 8 (5-15); BUN 33 mg/dL (7-18); BUN/Creat Ratio 23.7 RATIO (10-20); Calcium,Total 9.1 mg/dL (8.5-10.1); Chloride 109 mmol/L (98-107); Cholesterol 145 mg/dL (200); Creatinine, Serum 1.39 mg/dL (0.70-1.30); EST Glomerular Filtration Rate 52 mL/min (>60); Est Glom Filt Rate - Afr Amer 63 mL/min (>60); Estimated Creatinine Clearance 43.64 ml/min; Globulin 3.6 g/dL (2.2-4.2); Glucose 144 mg/dL (74-106); High Density Lipoprotein 46 mg/dL; Potassium 4.3 mmol/L (3.5-5.1); Protein, Total 6.9 g/dL (6.4-8.2); Sodium Level 136 mmol/L (136-145); Triglycerides 176 mg/dL; Very Low Density Lipoprotein 35 mg/dL (5-40)
[2022-05-09] MEDS: Aspirin E.C. 81 MG Tablet PO (09:00)
[2022-05-09] MEDS: Allopurinol 300 MG Tablet PO (09:01)
[2022-05-09] MEDS: Loratadine 10 MG Tablet PO (09:01)
[2022-05-09] MEDS: Losartan Potassium 50 MG Tablet PO (09:01)
[2022-05-09] MEDS: hydroCHLOROthiazide 12.5mg 12.5 MG PO (09:02)
--- NOTE | 2022-05-09 10:48 | PCM.PN.HOSP ---
Subjective Subjective Doing well, breathing okay. Still requiring 2 L nasal cannula. No issues overnight Objective Data Objective Data Vital Signs: Vital Signs Temp Pulse Resp BP Pulse Ox O2 Del Method O2 Flow Rate 98.1 F 78 20 H 121/84 H 94 Nasal Cannula 2 05/09/22 09:08 05/09/22 09:10 05/09/22 09:10 05/09/22 09:08 05/09/22 09:08 05/09/22 09:10 05/09/22 09:10 Oxygen Flow Rate (L/min) 2 Oxygen Delivery Method Nasal Cannula Weight: 240 lb 15.444 oz Body Mass Index (BMI) 34.0 Intake & Output: Intake and Output for Last 24 Hours 05/08/22 05/09/22 05/10/22 03:59 03:59 03:59 Intake Total 740 / 740 316.17 / 316.17 Output Total 350 / 350 200 / 200 Balance 390 / 390 116.17 / 116.17 Lab / Micro Data Result Diagrams: 05/09/22 05:40 05/09/22 05:40 Labs: Laboratory Results - last 24 hr 05/08/22 17:50: WBC 8.8, RBC 5.09, Hgb 16.8 H, Hct 48.1, MCV 94.5 H, MCH 33.0 H, MCHC 34.9, RDW Std Deviation 48.0 H, RDW Coeff of [place] 14.0, Plt Count 154, MPV 9.5, Immature Gran % (Auto) 0.200, Neut % (Auto) 75.8 H, Lymph % (Auto) 12.7 L, [place] % (Auto) 8.1, Eos % (Auto) 2.3, Baso % (Auto) 0.9, Absolute Neuts (auto) 6.6, Absolute Lymphs (auto) 1.11, Nucleated RBC % 0 05/08/22 17:50: Sodium 139, Potassium 4.2, Chloride 107, Carbon Dioxide 26.0, Anion Gap 6, BUN 32 H, Creatinine 1.56 H, Estim Creat Clear Calc 38.88, Est GFR (MDRD) Af Amer 55 L, Est GFR (MDRD) Non-Af 45 L, BUN/Creatinine Ratio 20.5 H, Glucose 122 H, Calcium 9.5, Troponin I High Sens 194 H* 05/08/22 17:50: B-Natriuretic Peptide 49.3 05/08/22 18:40: D-Dimer Quant (PE/DVT) > 20.00 H* 05/08/22 18:40: PT 13.2, INR 1.0, APTT 31.0 05/08/22 20:00: Troponin I High Sens 219 H* 05/08/22 20:00: Magnesium 2.0 05/08/22 21:20: COVID-19 ([facility]) Not Detected 05/09/22 00:05: Troponin I High Sens 185 H* 05/09/22 03:45: APTT 57.6 H 05/09/22 05:40: WBC 8.0, RBC 4.81, Hgb 15.6, Hct 45.6, MCV 94.8 H, MCH 32.4 H, MCHC 34.2, RDW Std Deviation 49.1 H, RDW Coeff of [place] 14.3, Plt Count 154, MPV 9.9, Immature Gran % (Auto) 0.400, Neut % (Auto) 71.0 H, Lymph % (Auto) 15.9 L, [place] % (Auto) 8.4, Eos % (Auto) 3.5, Baso % (Auto) 0.8, Absolute Neuts (auto) 5.7, Absolute Lymphs (auto) 1.27, Nucleated RBC % 0 05/09/22 05:40: Sodium 136, Potassium 4.3, Chloride 109 H, Carbon Dioxide 19.0 L, Anion Gap 8, BUN 33 H, Creatinine 1.39 H, Estim Creat Clear Calc 43.64, Est GFR (MDRD) Af Amer 63, Est GFR (MDRD) Non-Af 52 L, BUN/Creatinine Ratio 23.7 H, Glucose 144 H, Calcium 9.1, Total Bilirubin 1.00, AST 22, ALT 29, Alkaline Phosphatase 110, Total Protein 6.9, Albumin 3.3, Globulin 3.6, Albumin/Globulin Ratio 0.9, Triglycerides 176, Cholesterol 145, LDL Cholesterol 64, VLDL Cholesterol 35, HDL Cholesterol 46 05/09/22 09:40: APTT 53.0 H Radiography Diagnostic Testing: Radiology Impression Chest X-Ray 05/08/22 17:15 IMPRESSION: No radiographic evidence of acute cardiopulmonary disease. Electronically Signed: Ayo Mooney MD at 17:35 EST , Chest CTA 05/08/22 19:58 IMPRESSION: Low-density filling defects seen within the distal mainstem pulmonary arteries extending into the upper and lower lobe segmental pulmonary arteries bilaterally. Bilateral pulmonary emboli. There is enlargement of the right ventricle compatible with right heart strain. Electronically Signed: Ayo Mooney MD at 20:53 EST , ADDENDUM: 05/08/222128 IMPRESSION: Low-density filling defects seen within the distal mainstem pulmonary arteries extending into the upper and lower lobe segmental pulmonary arteries bilaterally. Bilateral pulmonary emboli. There is enlargement of the right ventricle compatible with right heart strain. N.B. : The above Results were Read Back by Ayo Mooney MD to Thiago Rivera MD, and understanding confirmed on 05/08/2022 21:22:24 (ET). Electronically Signed: Ayo Mooney MD at 20:53 EST , Rhythm Strip Rhythm Strip: Sinus Rhythm Rate: 95 Ectopy: None Physical Exam Narrative General: Alert, Oriented x3, Cooperative, No apparent distress HEENT: Atraumatic, PERRLA, EOMI, Normocephalic Oral: Moist Mucosa Neck: Supple, No JVD Lungs: Diminished, Normal air movement, No rhonchi, No wheeze, No rales Cardiovascular: Regular rate, Regular Rhythm, Normal S1, Normal S2, No murmurs Abdomen: Soft, Non Tender, Non-Distended, No Hepato-splenomegaly Extremities: No edema, Capillary Refill Less than 3 Seconds Skin: No rashes, No breakdown Musculoskeletal: No Tenderness to Palpation of Joints or Extremities Neurological: Cranial nerves II-XII grossly intact, Motor Exam 5/5 strength throughout, Sensory exam intact to light touch and pain Psych/Mental Status: Normal Affect, Appropriate Assessment & Plan Assessment/Plan (1) Bilateral pulmonary embolism: PLAN: Plan 1. Acute hypoxic respiratory failure secondary to bilateral PEs with right-sided cardiac strain/CAD status post stent/HTN/HLD ? We will transition to oral Eliquis and discontinue the heparin drip ? Echo is pending for tomorrow, his troponins were elevated but this is likely indicative the right heart strain as imaging indicated a an enlarged right ventricle ? Continue with 2 L nasal cannula will try to wean as able otherwise may need to be discharged on oxygen ? COVID was negative ? Continue with his home aspirin, Lipitor, bisoprolol, hydrochlorothiazide, and losartan 2. CKD 3a ? Renal function stable 3. Gout ? Stable ? Continue with allopurinol DVT: Eliquis Charges/Coding Visit Charges Inpatient E&M: 58025 Subs Hosp L2
--- NOTE | 2022-05-09 11:13 | NURSING ---
unable to retrieve oral anticoagulant from [facility]ud[facility] to start
--- NOTE | 2022-05-09 11:39 | NURSING ---
eliquis still not available for pt administration
[2022-05-09] MEDS: APIXABAN 5 MG TABLET 10 MG PO ×2 (12:32→22:11)
--- NOTE | 2022-05-09 14:59 | NURSING ---
no change from previous assessment, pt still has SOB w/ activity
[2022-05-09] MEDS: Atorvastatin Calcium 40 MG Tablet PO (22:12)
[2022-05-09] MEDS: Bisoprolol Fumarate 5 MG Tablet PO (22:14)
[2022-05-10] VITALS (9 sets, daily range): BP systolic 117–139; BP diastolic 75–79; PULSE 69–87; RESP 16–22; TEMP 35.8–36.8; O2SAT 89–96
[2022-05-10 07:02] LABS: Absolute Lymphocyte Count 1.17 X10^3/uL (0.83-4.51); Absolute Neutrophil Count 4.8 X10^3/uL (2.0-7.7); Basophil# 0.05 X10^3/uL; Basophil% 0.7 % (0-1); Eosinophil# 0.19 X10^3/uL; Eosinophils% 2.7 % (0-5); Hematocrit 43.7 % (40-54); Hemoglobin 14.5 g/dL (13.0-16.5); Lymphocyte # 1.17 X10^3/ul (0.83-4.51); Lymphocyte % 16.9 % (19-41); Mean Corp Hgb Conc 33.2 g/dL (32-36); Mean Corpuscular Hgb 31.7 pg (27.0-32.0); Mean Corpuscular Volume 95.6 fL (80-94); Mean Platelet Vol. 9.8 fl (6.2-12.0); Monocyte% 10.1 % (0-10); NRBC Flagged by Analyzer 0 % (0-5); Neutrophil % 69.3 % (47-70); Platelet Count 141 K/mm3 (150-450); RBC Distribution Width SD 48.2 fl (35.1-43.9); Red Blood Count 4.57 M/mm3 (4.6-6.2); White Blood Count 6.9 K/mm3 (4.4-11.0)
[2022-05-10 07:37] LABS: Anion Gap 9 (5-15); BUN 36 mg/dL (7-18); BUN/Creat Ratio 25.7 RATIO (10-20); Calcium,Total 9.3 mg/dL (8.5-10.1); Chloride 106 mmol/L (98-107); EST Glomerular Filtration Rate 52 mL/min (>60); Est Glom Filt Rate - Afr Amer 62 mL/min (>60); Estimated Creatinine Clearance 43.33 ml/min; Glucose 120 mg/dL (74-106); Potassium 3.9 mmol/L (3.5-5.1); Sodium Level 137 mmol/L (136-145)
[2022-05-10] MEDS: Losartan Potassium 50 MG Tablet PO (08:55)
[2022-05-10] MEDS: Aspirin E.C. 81 MG Tablet PO (08:55)
[2022-05-10] MEDS: APIXABAN 5 MG TABLET 10 MG PO (08:55)
[2022-05-10] MEDS: Allopurinol 300 MG Tablet PO (08:55)
[2022-05-10] MEDS: hydroCHLOROthiazide 12.5mg 12.5 MG PO (08:56)
[2022-05-10] MEDS: Loratadine 10 MG Tablet PO (08:56)
--- NOTE | 2022-05-10 12:17 | DS.PCM_ITS ---
Providers Date of Admission: 05/08/22 Date of Discharge: 05/10/22 Primary Care Physician: Dr. Jorge Gill DO Reason For Visit: ACUTE BL PE, NSTEMI, HYPOXIA Diagnosis Discharge Diagnosis (1) Bilateral pulmonary embolism: Status: Acute Code(s): I26.99 - Other pulmonary embolism without acute cor pulmonale Medications at Discharge Home Medications allopurinol 300 mg tablet 300 mg PO DAILY gout 03/02/21 aspirin 81 mg tablet,delayed release (Adult Aspirin Regimen) 81 mg PO DAILY heart health 03/02/21 atorvastatin 40 mg tablet 40 mg PO QHS cholesterol 03/02/21 bisoprolol fumarate 5 mg tablet 5 mg PO DAILY blood pressure 03/02/21 cholecalciferol (vitamin D3) 125 mcg (5,000 unit) capsule 125 mcg PO DAILY vitamin 03/02/21 coenzyme Q10 100 mg capsule (Co Q-10) 100 mg PO DAILY supplement 03/02/21 fexofenadine 180 mg tablet (Leslye Allergy) 180 mg PO DAILY allergies 03/02/21 hydrochlorothiazide 12.5 mg tablet 12.5 mg PO DAILY diuretic 03/02/21 losartan 50 mg tablet 50 mg PO DAILY blood pressure 03/04/21 apixaban 5 mg tablet (Eliquis) 5 mg PO BID #60 tabs 05/10/22 apixaban 5 mg tablet (Eliquis) 10 mg PO BID 6 days #24 tabs 05/10/22 Hospital Course Operations None Procedures 2-D Echocardiogram and - (CTA chest) Summary of Care Provided Minutes Spent on Discharge: 37 Hospital Course: Mr. Vital is an 81-year-old white male who presented to emergency department at [facility] on 05/08/2022 with shortness of breath and chest pain. Patient reported that he had a onset of dyspnea approximately 3 days to prior to presentation which he specifically reported was better with rest and got worse with exertion. He had some associated have venous in his chest and pressure in the substernal region without any radiation or associated nausea, vomiting, diaphoresis, cough, lightheadedness or any other recent fever or chills. Given his above worsening shortness of breath he came the emergency department. Work-up in the ED included T98.7, heart rate initially 102, BP 156/104, respiratory rate 26, initially 85% on room air with improvement to 90% on 3 L nasal cannula, CBC with WC 8.8, hemoglobin 16.8, platelet 154 without marked shift, D-dimer initially pending upon requested evaluation of patient however resulted greater than 20 with follow-up CTPA with low-density filling defects within the distal mainstem pulmonary arteries extending to the upper and lower lobe segmental pulmonary arteries bilaterally, bilateral pulmonary emboli, enlargement of the RV compatible with right heart strain, BMP with BUN/creatinine 32/1.56, glucose 122, initial troponin 194, BNP 49.3, chest x-ray with no acute cardiopulmonary findings, EKG with RBBB with nonspecific ST-T wave alterations, T wave inversions. Originally in the emergency department they were concerned about a cardiac event he was administered 162 mg of aspirin x1 dose but eventually was loaded with heparin followed by a heparin drip for PE which were identified. He was admitted to the hospital and maintained on a heparin drip. He initially required supplemental oxygen at 2 L for oxygen saturations at 85% on room air at admission. His initial troponin was elevated at 194 with a trend up to 219 but then his third troponin trended back down to 185. This is most likely related to not cardiac related strain from his PE and echocardiogram is as noted below. We were able to wean his oxygen with time during his hospital course and ambulatory pulse ox was performed prior to discharge at which time he did not qualify for supplemental oxygen. Oxygen at rest was 94 to 97% and with ambulation he was 89%. On 05/09/2022 he was transition from IV heparin to oral Eliquis 10 mg p.o. twice daily. He will continue 10 mg p.o. twice daily for total of 7 days and that time be converted to 5 mg p.o. be ID indefinitely. The patient did indicate to me at the time of discharge that he has previous history of DVT but was approximately 20 years ago. He was on Coumadin for short period of time after that which had subseq uently been discontinued. He had not had any episodes of venous thromboembolism since that time. He did indicate that he has been more sedentary recently and was wondering if this contributed. I do suspect with his previous history that he may have an underlying coagulation issue and outpatient work-up could be considered after 3 to 6 months of current treatment otherwise I would maintain anticoagulation with him indefinitely with his history. An echocardiogram was obtained prior to discharge on 05/10/2022 and showed 65% with indeterminate diastolic function, severely dilated RV with global right RV dysfunction and a moderately enlarged right atrium with pulmonary artery systolic pressures at 60 mmHg. We have recommended outpatient follow-up with pulmonary medicine after discharge and information was given. The patient was instructed to call on Tuesday and make appointment to be seen as soon as possible in the office however there is no urgency to this. Prescriptions for his anticoagulant were sent to the pharmacy prior to discharge the patient was discharged home in stable condition on 05/10/2022. Discharge diagnoses: Bilateral pulmonary embolus Troponin elevation secondary to PE and nonischemic cardiac strain History of DVT-remote CAD with history of PCI Hypertension Hyperlipidemia CKD stage IIIb Allergic rhinitis COPD Gout Obesity History of tobacco abuse Physical Exam Const alert, oriented x3 and no apparent distress Constitutional Narrative: Obese, Elderly, white male sitting up in bed, appears comfortable nontoxic, currently on room air with no desaturations or chest pain General Appearance: cooperative, comfortable, well kempt and well developed Orientation / Consciousness: awake, oriented to person, oriented to place and oriented to time Exam Limitations: no limitations Nutritional Appearance: obese HEENT normocephalic, head/scalp atraumatic and moist oral mucous membranes; Negative for hearing grossly normal bilaterally HEENT Narrative: Moderate hearing loss, dentition is fair, Mallampati 2-3, no thrush Eyes PERRL, EOMs intact bilaterally and conjunctivae normal Eyes Narrative: No scleral icterus Neck no lymphadenopathy and supple Neck Narrative: Trachea midline, no thyroid enlargement Resp normal respiratory effort, no retractions and no use of accessory muscles Resp Narrative: Few scattered end expiratory wheezes-patient indicates these are chronic Auscultation: wheezes; Negative for crackles or rhonchi Cardio regular rate, regular rhythm, S1 normal heart sound, S2 normal heart sound, no murmurs, no rub, no gallops and no clicks GI normal to inspection, nondistended, normoactive bowel sounds, soft to palpation and non-tender; Negative for non-distended Extremity no clubbing, cyanosis or edema Extremity Narrative: Pedal pulses are 2+ Skin no rashes or lesions noted, no wounds, skin turgor normal and no jaundice Neuro oriented x3, CN's II-XII intact bilaterally, moves all extremities and no focal motor deficits Sensorium / Orientation: awake, alert, oriented to person, oriented to place and oriented to time Speech: speech normal Psych affect normal Psych Narrative: Very pleasant and appropriately interactive Weight / BMI Weight Weight: 110.5 kg Body Mass Index (BMI) 34.0 ABG / Lab / Microbiology Data Result Diagrams: 05/10/22 06:35 05/10/22 06:35 Laboratory: Laboratory Results - last 24 hr 05/10/22 06:35: WBC 6.9, RBC 4.57 L, Hgb 14.5, Hct 43.7, MCV 95.6 H, MCH 31.7, MCHC 33.2, RDW Std Deviation 48.2 H, RDW Coeff of Lucia 14.0, Plt Count 141 L, MPV 9.8, Immature Gran % (Auto) 0.300, Neut % (Auto) 69.3, Lymph % (Auto) 16.9 L, Dewey % (Auto) 10.1 H, Eos % (Auto) 2.7, Baso % (Auto) 0.7, Absolute Neuts (auto) 4.8, Absolute Lymphs (auto) 1.17, Nucleated RBC % 0 05/10/22 06:35: Sodium 137, Potassium 3.9, Chloride 106, Carbon Dioxide 22.0, Anion Gap 9, BUN 36 H, Creatinine 1.40 H, Estim Creat Clear Calc 43.33, Est GFR (MDRD) Af Amer 62, Est GFR (MDRD) Non-Af 52 L, BUN/Creatinine Ratio 25.7 H, Glucose 120 H, Calcium 9.3 Meaningful Use Info Meaningful Use Diagnoses (Choose all that apply): VTE VTE Anticoag overlap given w/in hospital stay or rx'd at ut?: No Pt receive overlap for 5 days?: No Reason overlap not ordered, prescribed, or given for 5 days: Treatment Not Indicated Discharge Plan Admission Admit Date/Time: 05/08/22 19:44 Primary Reason for Your Visit: Dyspnea and Chest Pain Attending Provider: Brooklyn Lara Primary Care Provider: Jorge Gill Consulting Providers: Salma Botello ; Davey Euceda Discharge Orders/Prescriptions Prescriptions: New Eliquis 5 mg Tablet 10 mg PO BID 6 Days Qty: 24 0RF Eliquis 5 mg tablet 5 mg PO BID Qty: 60 1RF Rx Instructions: start after 6 days of 10 mg BID dosing is completed Continued allopurinol 300 mg tablet 300 mg PO DAILY atorvastatin 40 mg tablet 40 mg PO QHS bisoprolol fumarate 5 mg tablet 5 mg PO DAILY hydrochlorothiazide 12.5 mg tablet 12.5 mg PO DAILY fexofenadine [Leslye Allergy] 180 mg tablet 180 mg PO DAILY aspirin [Adult Aspirin Regimen] 81 mg tablet,delayed release (DR/EC) 81 mg PO DAILY coenzyme Q10 [Co Q-10] 100 mg capsule 100 mg PO DAILY cholecalciferol (vitamin D3) 125 mcg (5,000 unit) capsule 125 mcg PO DAILY losartan 50 mg tablet 50 mg PO DAILY Referrals / Follow Up: Saman Dugan MD [Med Staff - Active Staff] - See Referral Note (Call on Tuesday for outpt followup for Pulmonary embolism as soon as can be seen) Jorge Gill DO [Primary Care Provider] - Within 1 Week Disposition Disposition (needs filled in before D/C Order can be placed): Home, Self Care Charges/Coding Visit Charges Inpatient E&M: 58923 Disch Hosp
== END 2022-05-10 18:00 | disposition home or self-care (01) | DRG 176 ==
LOC: ED 19:53 → PCU 21:25
PROVIDERS: Family Medicine; Admitting Provider Family Medicine; Emergency Provider Emergency Medicine; PCP Family Medicine; Visit Provider Internal Medicine
DX: I26.99 Other pulmonary embolism without acute cor pulmonale (principal); E66.9 Obesity, unspecified; N18.32 Chronic kidney disease, stage 3b; J44.9 Chronic obstructive pulmonary disease, unspecified; M10.9 Gout, unspecified; J30.9 Allergic rhinitis, unspecified; E78.5 Hyperlipidemia, unspecified; I12.9 Hypertensive chronic kidney disease with stage 1 through stage 4 chronic kidney disease, or unspecified chronic kidney disease; I25.10 Atherosclerotic heart disease of native coronary artery without angina pectoris; I45.10 Unspecified right bundle-branch block; Z79.82 Long term (current) use of aspirin; Z87.891 Personal history of nicotine dependence; Z68.34 Body mass index [BMI] 34.0-34.9, adult; Z95.5 Presence of coronary angioplasty implant and graft; Z86.718 Personal history of other venous thrombosis and embolism; I51.9 Heart disease, unspecified
CPT/HCPCS: 36415; 71046; 71275; 80048; 80053; 80061; 83735; 83880; 84484; 85025; 85379; 85610; 85730; 87635; 93005; 93306; 99251; 99284; J7030; Q9957; Q9967; A4216; G0463; U0003; U0005

== ENCOUNTER → 2022-06-04 | Outpatient (CLI) | payer MEDICARE, SELFPAY ==
--- NOTE | 2022-06-04 14:41 | CT_ITS ---
STUDY: CT ABDOMEN AND PELVIS WITH CONTRAST REASON FOR EXAM: Male, 81 years old. COLON POLYPS, ASSES FOR OCCULT NEOPLASTIC PROCESS RADIATION DOSAGE (If Supplied By Facility): CTDIvol = ( 19.82 ) mGy, DLP = ( 1204.43 ) mGycm TECHNIQUE: Transaxial images were obtained from the dome of the diaphragm to the symphysis pubis without oral contrast. IV 100mL Isovue-300 was administered. Sagittal and coronal images were reconstructed. Individualized dose optimization techniques were used for this CT. COMPARISON: None. FINDINGS: Small left pleural effusion. There is a 2.3 cm x 1.4 cm pleural-based nodule in the left lower lobe. Follow-up in 3 months is recommended. Calcified right infrahilar lymph nodes. Coronary artery calcification. There is decreased attenuation of the liver consistent with steatosis. There is a 6.7 cm x 4.97 m cyst in the left lobe of the liver. There are surgical clips in the gallbladder fossa consistent with a prior cholecystectomy. Normal spleen. Normal pancreas. Normal bilateral adrenal glands. Multiple small right renal cysts. There is evidence of cortical scarring in the right kidney. Multiple small left renal cysts as well as parapelvic cysts. The largest cyst is in the lower pole of the left kidney and measures 3.3 cm. Normal visualized stomach. Normal small intestine. There are multiple colonic diverticula consistent with diverticulosis. The appendix is visualized and appears normal. There is scattered atherosclerotic calcification of the abdominal aorta, without a demonstrated aneurysm. Normal inferior vena cava. Normal retroperitoneum. There is a 1.7 cm x 2.1 cm there are thick rim and the anterior aspect of the urinary bladder. 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 Normal abdominal wall. There are diffuse degenerative changes of the visualized lumbar spine. Minimal anterior listhesis of L4 on L5 and L5 on S1. CT/Abdomen/Pelvis WITH Contrast IMPRESSION: Small left pleural effusion with a pleural based nodule in the left lower lobe. Follow-up in 3 months is recommended. Diffuse fatty infiltration of the liver. Bilateral renal cysts and cortical scarring in the right kidney. 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 Electronically Signed: Truman Child MD at 15:29 EST ,
== END | disposition home or self-care (01) ==
PROVIDERS: PCP Family Medicine; Visit Provider Family Medicine
DX: Z12.9 Encounter for screening for malignant neoplasm, site unspecified (principal); I26.99 Other pulmonary embolism without acute cor pulmonale; J90 Pleural effusion, not elsewhere classified; R91.1 Solitary pulmonary nodule; N28.1 Cyst of kidney, acquired; K76.0 Fatty (change of) liver, not elsewhere classified; K57.30 Diverticulosis of large intestine without perforation or abscess without bleeding; I25.10 Atherosclerotic heart disease of native coronary artery without angina pectoris; K63.5 Polyp of colon; Z85.46 Personal history of malignant neoplasm of prostate
CPT/HCPCS: 74177; Q9967; A4216

== ENCOUNTER → 2022-06-07 | Outpatient (CLI) | payer MEDICARE, SELFPAY ==
--- NOTE | 2022-06-07 14:00 | ECHOCS_ITS ---
Reason For Study: PHTN Procedure This was a 2D Doppler, Color Flow transthoracic echocardiogram. The study was technically difficult. Contrast injection was performed. Exam performed in department. Left Ventricle Normal LV size. Left ventricular systolic function is normal. The estimated ejection fraction is 55 %. Stage 1 diastolic dysfunction. No regional wall motion abnormalities noted. Right Ventricle Normal RV size. Normal systolic function. Atria The left atrium is mildly enlarged. Normal right atrium. Mitral Valve Normal mitral valve. Tricuspid Valve The tricuspid valve is not well visualized. Mild (1+) tricuspid valve insufficiency. Pulmonary artery systolic pressure is 38 mmHg. Aortic Valve The aortic valve is not well visualized. Pulmonic Valve The pulmonic valve is not well visualized. Great Vessels Normal aortic root. The pulmonary artery is normal size. Normal inferior vena cava. Pericardium/Pleural No pericardial effusion. Medication 22 gauge I.V. with prn adaptor inserted into right arm. Diluted definity 2ml given slow IV push to enhance endocardial definition. MMode/2D Measurements & Calculations LVIDd: 4.6 cm IVSd: 0.94 cm Ao root diam: 3.8 cm LVIDs: 2.8 cm LVPWd: 1.3 cm FS: 39.6 % LAV(MOD-sp2): 52.6 ml LVAd ap4: 32.7 cm2 SV(MOD-sp4): 64.1 ml LVLd ap4: 8.8 cm EDV(MOD-sp4): 99.9 ml EDV(sp4-el): 103.3 ml LVAs ap4: 18.2 cm2 LVLs ap4: 7.8 cm ESV(MOD-sp4): 35.9 ml ESV(sp4-el): 35.8 ml EF(MOD-sp4): 64.1 % EF(sp4-el): 65.4 % SV(sp4-el): 67.6 ml LA A4 area: 22.6 cm2 LA dimension(2D): 3.9 cm RA A4 area: 10.3 cm2 Time Measurements MV dec time: 0.26 sec Doppler Measurements & Calculations MV E max paxton: 47.3 cm/sec Lat Peak E' Paxton: 8.5 cm/sec Med Peak E' Paxton: 5.8 cm/sec MV A max paxton: 58.8 cm/sec E/E' lat: 5.6 E/E' med: 8.2 MV E/A: 0.80 MV V2 max: 65.0 cm/sec MV dec slope: 179.7 cm/sec2 Ao V2 max: 105.9 cm/sec MV max P.7 mmHg Ao max P.5 mmHg MV V2 mean: 40.9 cm/sec Ao V2 mean: 75.5 cm/sec MV mean P.73 mmHg Ao mean P.6 mmHg MV V2 VTI: 20.9 cm Ao V2 VTI: 23.0 cm LV V1 max: 97.0 cm/sec PA V2 max: 122.5 cm/sec TR max paxton: 293.0 cm/sec LV V1 max P.8 mmHg PA V2 mean: 82.3 cm/sec TR max P.3 mmHg ECHO/Echo Complete W/ Contrast Interpretation Summary Normal LV size. Left ventricular systolic function is normal. The estimated ejection fraction is 55 %. Stage 1 diastolic dysfunction. Pulmonary artery systolic pressure is 38 mmHg. Liver Cyst Ordering Physician: Saman Dugan Referring Physician: Jorge Gill Performed By: Prema Obrien RCS
== END | disposition home or self-care (01) ==
LOC: CVS 13:59
PROVIDERS: PCP Family Medicine; Visit Provider Internal Medicine Critical Care Medicine
DX: I27.20 Pulmonary hypertension, unspecified (principal)
CPT/HCPCS: 93306; Q9957; A4216; C8929

== ENCOUNTER 2022-08-02 14:19 | Emergency (ER) | payer MEDICARE, SELFPAY ==
[2022-08-02] VITALS (8 sets, daily range): BP systolic 109–142; BP diastolic 64–79; PULSE 77–98; RESP 9–20; TEMP 36.4; O2SAT 91–98; BMI 34.8
--- NOTE | 2022-08-02 14:50 | EKG12_ITS ---
Test Reason : Blood Pressure : / mmHG Vent. Rate : 079 BPM Atrial Rate : 079 BPM P-R Int : 144 ms QRS Dur : 130 ms QT Int : 390 ms P-R-T Axes : -06 -15 -04 degrees QTc Int : 447 ms Normal sinus rhythm Right bundle branch block Abnormal ECG Confirmed by VLAD CRUZ, NNAMDI ([id number]), art editor JINNY ARAGON ([id number]) on 08/03/2022 8:42:21 AM Referred By: PHIL Confirmed By:NNAMDI CHU MD
--- NOTE | 2022-08-02 14:52 | ED.VIS.DYS ---
HPI History of Present Illness Chief Complaint: Shortness of Breath Informant: patient and spouse/S.O. Narrative Narrative: Patient presents with some increased dyspnea. He was diagnosed with pulmonary emboli back in April. He stated for the first week he thought he was very slowly getting better but he was getting a little better. But since then he has had episodes where he gets short of breath. Sometimes he really has to take multiple deep breaths to catch his breath. He does not have the ability to check his oxygen saturations at home. Both he and his note that during these episodes they hear a lot more wheezing. states over the last couple weeks sometimes his wheezing will wake her up at night it is so loud. Patient is coughing. He is bringing up some clear to yellow sputum but it has not changed in a month. He has no hemoptysis or chest pain. He is taking his Eliquis as prescribed twice a day and has not missed. No pains in his chest or pain with deep breathing. He does have a history of smoking but he quit over 3 decades ago. He does not think he is ever been diagnosed with COPD or asthma or used inhalers. He did talk to his black top machine operator, Dr. Dugan about this about a month and a half ago. He has some testing coming up this coming week but just felt that he has had multiple episodes of wheezing and trouble catching his breath in the last few days so he came in. Currently he feels okay. [facility] Medical History Atherosclerotic heart disease of [place] coronary artery without angina pectoris Bilateral pulmonary embolism Cancer Chronic back pain Chronic kidney disease (CKD) Coronary artery disease DVT (deep venous thrombosis) Essential hypertension Former smoker Gout History of ST elevation myocardial infarction (STEMI) Hyperlipidemia Hypertension Myocardial infarct Obesity Old inferior wall myocardial infarction Prostate cancer Pulmonary embolism Right bundle branch block (RBBB) Varicose veins of right lower extremity Home Medications allopurinol 300 mg tablet 300 mg PO DAILY gout 03/02/21 [History Last Taken Unknown] aspirin 81 mg tablet,delayed release (Adult Aspirin Regimen) 81 mg PO DAILY heart health 03/02/21 [History Last Taken Unknown] atorvastatin 40 mg tablet 40 mg PO QHS cholesterol 03/02/21 [History Last Taken Unknown] bisoprolol fumarate 5 mg tablet 5 mg PO DAILY blood pressure 03/02/21 [History Last Taken Unknown] cholecalciferol (vitamin D3) 125 mcg (5,000 unit) capsule 125 mcg PO DAILY vitamin 03/02/21 [History Last Taken Unknown] coenzyme Q10 100 mg capsule (Co Q-10) 100 mg PO DAILY supplement 03/02/21 [History Last Taken Unknown] fexofenadine 180 mg tablet (Leslye Allergy) 180 mg PO DAILY allergies 03/02/21 [History Last Taken Unknown] hydrochlorothiazide 12.5 mg tablet 12.5 mg PO DAILY diuretic 03/02/21 [History Last Taken Unknown] losartan 50 mg tablet 50 mg PO DAILY blood pressure 03/04/21 [History Last Taken 04/06/21] apixaban 5 mg tablet (Eliquis) 5 mg PO BID #60 tabs 06/11/22 [Rx Last Taken Unknown] albuterol sulfate 90 mcg/actuation aerosol inhaler (Ventolin HFA) 2 puff inhalation Q4H PRN PRN Wheezing ##1 08/02/22 [Rx Last Taken Unknown] levofloxacin 500 mg tablet 500 mg PO DAILY #7 tabs 08/02/22 [Rx Last Taken Unknown] prednisone 20 mg tablet 60 mg PO DAILY #15 TABLETS 08/02/22 [Rx Last Taken Unknown] Allergy/AdvReac Type Severity Reaction Status Date / Time Sulfa (Sulfonamide Allergy unknown Verified 08/02/22 14:34 Antibiotics) Family History Father Heart disease Myocardial infarction, Onset Age: 70 Mother Dementia Surgical History History of appendectomy History of cholecystectomy History of coronary artery stent placement (08/05/15) History of left heart catheterization (04/06/21) History of total knee arthroplasty Status post endovenous radiofrequency ablation (RFA) of saphenous vein (04/2008) Social History Smoking Status: Former smoker how long ago did patient quit smoking: Quit 1976, started 17 y/o, smoked 2 ppd until quit. alcohol intake: never substance use type: does not use ROS ROS ED Constitutional Constitutional ED: Denies chills, fever(s), sweats or weight loss ENT ENT ED: Denies rhinorrhea Cardiovascular Cardiovascular: Denies chest pain, palpitations or racing heartbeat Respiratory/Chest Respiratory/Chest: Reports cough, dyspnea, dyspnea on exertion and sputum Gastrointestinal Gastrointestinal: Denies abdominal pain, nausea or vomiting Musculoskeletal Musculoskeletal: Denies back pain or myalgias Integumentary Denies rash Neurologic Neurologic: Denies headache(s) Endocrine Endocrinology: Denies polydipsia or polyuria Hematologic/Lymphatic Hematologic/Lymphatic: Reports easy bleeding and easy bruising; Denies lymphadenopathy Allergic/Immunologic Allergic/Immunologic ED: Denies urticaria EXAM Physical Exam Narrative Exam Narrative: Patient awake and alert. He actually is sitting comfortably in bed. Saturations are anywhere between about 94 to 99% on room air while I am in the room. His recent respiratory rate is recorded at 9 but I am suspicious they may 19. He is nontoxic and carries on normal conversation. HEENT shows no trauma. Mucous membranes are moist. Neck shows no JVD or stridor. Lungs show diffuse expiratory very tight wheezing. Is actually hard to listen to his heart tones because of the high-pitched wheeze. I do not hear rhonchi or rales. There is no pain when he takes a deep breath. He is not coughing while I am in the room. Heart is regular. Difficult to hear tones as above. Abdomen soft nontender shows no CVA or suprapubic tenderness Neurologically he is awake alert appropriate not at all sleepy alert lethargic or confused. Extremities show some chronic venous stasis changes but no acute edema. Const Vital Signs: 08/02/22 14:19 08/02/22 14:36 08/02/22 14:38 Temperature 97.6 F L Temperature Source Temporal Pulse Rate 86 81 Respiratory Rate 20 H 9 L Respiratory Effort Short of Breath Labored Accessory Muscle Use Respiratory Depth Shallow Respiratory Pattern Tachypnea Blood Pressure 142/79 H 117/74 Blood Pressure Mean 100 88 Pulse Ox 98 95 Oxygen Delivery Method Room Air Room Air Room Air 08/02/22 15:31 08/02/22 14:57 08/02/22 16:12 Temperature Temperature Source Pulse Rate 77 98 80 Respiratory Rate 17 20 H 19 H Respiratory Effort Respiratory Depth Respiratory Pattern Normal Blood Pressure 120/68 Blood Pressure Mean 85 Pulse Ox 93 91 Oxygen Delivery Method Room Air Room Air MDM MDM MDM Narrative Medical decision making narrative: Patient's white count is not elevated. Hemoglobin platelets are normal. Electrolytes showed mild elevation in creatinine at 1.59. Glucose is okay 128 just minimally high. My independent interpretation of the patient's two-view chest x-ray does show increasing left small effusion versus infiltrate. Since he has been coughing up some yellow this very well could be an infiltrate. Final reading is left lower lobe infiltrate and small effusion. Patient sounds much better after breathing treatment. He states he feels better. He can breathe easily. He is about 98% sat on room air now. He would like to go home. Even though he is older I think this is reasonable. He has been tolerating his symptoms. He is doing better. I will get him on steroids and inhaler for the wheezing. We will start him on antibiotics. We discussed reasons to return and explained that it is possible he could get ill and may need admission but at this point I think he is okay. He is not dyspneic walking around in the room. Lab Data Labs: Laboratory Results - last 24 hr 08/02/22 08/02/22 15:05 15:05 WBC 5.9 RBC 4.00 L Hgb 13.5 Hct 40.5 MCV 101.3 H MCH 33.8 H MCHC 33.3 RDW Std Deviation 55.2 H RDW Coeff of Lucia 15.3 H Plt Count 244 MPV 9.6 Immature Gran % (Auto) 0.300 Neut % (Auto) 71.9 H Lymph % (Auto) 16.2 L [place] % (Auto) 9.0 Eos % (Auto) 1.7 Baso % (Auto) 0.9 Absolute Neuts (auto) 4.2 Absolute Lymphs (auto) 0.95 Nucleated RBC % 0 Sodium 140 Potassium 3.8 Chloride 109 H Carbon Dioxide 24.0 Anion Gap 7 BUN 21 H Creatinine 1.59 H Estim Creat Clear Calc 37.49 Est GFR (MDRD) Af Amer 54 L Est GFR (MDRD) Non-Af 44 L BUN/Creatinine Ratio 13.2 Glucose 128 H Calcium 8.6 Radiography Diagnostic Testing: Clinical Impression(s) from Imaging Studies Chest X-Ray 08/02/22 15:15 IMPRESSION: Left lower lobe infiltrate and small left pleural effusion. Electronically Signed: Truman Child MD at 15:33 EDT , EKG Initial EKG: Comments: My independent interpretation of the patient's EKG done for dyspnea shows sinus rhythm with overall rate of 79. No ventricular ectopy. He does have a right bundle branch block pattern which is not new. No acute ST elevation or depression but there are nonspecific changes related to the bundle branch block. [place] interval is normal. QRS duration is long. QTc is normal. Overall this is quite similar to prior from 08 May 2022. Discharge Plan Triage Chief Complaint: Shortness of Breath ED Provider: Carl Lopez Dx/Rx/DC Orders Clinical Impression: Left lower lobe pneumonia, Acute bronchospasm Instructions: ED Bronchospasm (Adult), ED Pneumonia (Adult) Prescriptions: New prednisone 20 mg tablet 60 mg PO DAILY Qty: 15 0RF levofloxacin [levofloxacin] 500 mg tablet 500 mg PO DAILY Qty: 7 0RF albuterol sulfate [Ventolin HFA] 90 mcg/actuation HFA aerosol inhaler 2 puff inhalation Q4H PRN PRN (Reason: Wheezing) Qty: 1 0RF No Action allopurinol 300 mg tablet 300 mg PO DAILY atorvastatin 40 mg tablet 40 mg PO QHS bisoprolol fumarate 5 mg tablet 5 mg PO DAILY hydrochlorothiazide 12.5 mg tablet 12.5 mg PO DAILY fexofenadine [Leslye Allergy] 180 mg tablet 180 mg PO DAILY aspirin [Adult Aspirin Regimen] 81 mg tablet,delayed release (DR/EC) 81 mg PO DAILY coenzyme Q10 [Co Q-10] 100 mg capsule 100 mg PO DAILY cholecalciferol (vitamin D3) 125 mcg (5,000 unit) capsule 125 mcg PO DAILY losartan 50 mg tablet 50 mg PO DAILY Eliquis 5 mg tablet 5 mg PO BID Qty: 60 11RF Primary Care Provider: Jorge Gill Referrals: Jorge Gill DO [Primary Care Provider] - 3-5 Days if not improving Disposition Disposition: Home, Self Care
[2022-08-02] MEDS: Ipratropium/Albuterol Sulfate 3 ML AMPUL.NEB INHALATION (14:57)
[2022-08-02 15:15] LABS: Absolute Lymphocyte Count 0.95 X10^3/uL (0.83-4.51); Absolute Neutrophil Count 4.2 X10^3/uL (2.0-7.7); Basophil# 0.05 X10^3/uL; Basophil% 0.9 % (0-1); Eosinophils% 1.7 % (0-5); Hematocrit 40.5 % (40-54); Hemoglobin 13.5 g/dL (13.0-16.5); Lymphocyte # 0.95 X10^3/ul (0.83-4.51); Lymphocyte % 16.2 % (19-41); Mean Corp Hgb Conc 33.3 g/dL (32-36); Mean Corpuscular Hgb 33.8 pg (27.0-32.0); Mean Corpuscular Volume 101.3 fL (80-94); Mean Platelet Vol. 9.6 fl (6.2-12.0); Monocyte# 0.53 X10^3/uL; NRBC Flagged by Analyzer 0 % (0-5); Neutrophil # 4.22 X10^3/uL (2.7-7.7); Neutrophil % 71.9 % (47-70); Platelet Count 244 K/mm3 (150-450); RBC Distribution Width CV 15.3 % (11.6-14.6); RBC Distribution Width SD 55.2 fl (35.1-43.9); White Blood Count 5.9 K/mm3 (4.4-11.0)
--- NOTE | 2022-08-02 15:15 | RAD_ITS ---
STUDY: X-RAY CHEST REASON FOR EXAM: Male, 82 years old. SOB TECHNIQUE: PA and lateral views of the chest. COMPARISON: Comparison is made with prior study dated May 08, 2022. FINDINGS: EKG electrodes are seen. Left lower lobe infiltrate and small left pleural effusion. There is mild cardiac enlargement. Normal mediastinum and josafat. Normal visualized pulmonary arteries. There is atherosclerotic calcification of the aortic arch with tortuosity. There are diffuse degenerative changes of the visualized thoracic spine. Prior left rotator cuff surgery. There is no demonstrated abnormality of the visualized soft tissue structures of the upper abdomen. RAD/Chest PA and Lateral IMPRESSION: Left lower lobe infiltrate and small left pleural effusion. Electronically Signed: Truman Child MD at 15:33 EDT ,
[2022-08-02 15:47] LABS: Anion Gap 7 (5-15); BUN 21 mg/dL (7-18); BUN/Creat Ratio 13.2 RATIO (10-20); Calcium,Total 8.6 mg/dL (8.5-10.1); Chloride 109 mmol/L (98-107); Creatinine, Serum 1.59 mg/dL (0.70-1.30); EST Glomerular Filtration Rate 44 mL/min (>60); Est Glom Filt Rate - Afr Amer 54 mL/min (>60); Estimated Creatinine Clearance 37.49 ml/min; Glucose 128 mg/dL (74-106); Potassium 3.8 mmol/L (3.5-5.1); Sodium Level 140 mmol/L (136-145)
[2022-08-02] MEDS: levoFLOXacin 750 MG Tablet PO (16:49)
[2022-08-02] MEDS: predniSONE 20 MG Tablet 60 MG PO (16:49)
[2022-08-02] MEDS: Albuterol Sulfate 8 gm Inhaler (60 puffs) 2 PUFF INHALATION (16:50)
[2022-08-02] MEDS: Albuterol 2.5 MG/3 ML VIAL.NEB. INHALATION (16:58)
== END 2022-08-02 17:00 | disposition home or self-care (01) ==
PROVIDERS: Emergency Provider Emergency Medicine; PCP Family Medicine; Visit Provider Emergency Medicine
DX: J18.9 Pneumonia, unspecified organism (principal); J98.01 Acute bronchospasm; N18.9 Chronic kidney disease, unspecified; Z87.891 Personal history of nicotine dependence; I25.10 Atherosclerotic heart disease of native coronary artery without angina pectoris; I12.9 Hypertensive chronic kidney disease with stage 1 through stage 4 chronic kidney disease, or unspecified chronic kidney disease; E78.5 Hyperlipidemia, unspecified; Z79.01 Long term (current) use of anticoagulants; Z86.711 Personal history of pulmonary embolism; M10.9 Gout, unspecified; Z79.899 Other long term (current) drug therapy; Z79.82 Long term (current) use of aspirin; Z86.718 Personal history of other venous thrombosis and embolism; Z95.5 Presence of coronary angioplasty implant and graft
CPT/HCPCS: 71046; 80048; 85025; 87428; 93005; 94640; 99284; A4216

== ENCOUNTER 2022-08-04 14:56 | Emergency (ER) | payer MEDICARE, SELFPAY ==
[2022-08-04] VITALS (11 sets, daily range): BP systolic 132–182; BP diastolic 73–96; PULSE 82–97; RESP 13–31; TEMP 36.2; O2SAT 94–99; BMI 38.6
[2022-08-04] MEDS: Etomidate 20 MG/10 ML Vial IV (14:59)
--- NOTE | 2022-08-04 15:13 | CT_ITS ---
STUDY: CT BRAIN WITHOUT CONTRAST REASON FOR EXAM: Male, 82 years old. Neuro deficit, acute, stroke suspected RADIATION DOSAGE (If Supplied By Facility): CTDIvol = ( 44.99 ) mGy, DLP = ( 829.85 ) mGycm TECHNIQUE: Transaxial CT imaging of the brain was performed without administration of intravenous contrast material. Individualized dose optimization techniques were used for this CT. COMPARISON: No relevant priors. FINDINGS: Normal soft tissue structures. Normal calvarium. There is mild cerebral atrophy with widening of the extra-axial spaces and ventricular dilatation. Small intracerebral hematoma in the posterior left parietal lobe. Normal basal ganglia and thalami. Normal brainstem. Normal cerebellum. There is evidence of subarachnoid hemorrhage worse in the left cerebral hemisphere. 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 There is shift of the midline from left to right measuring 1 cm. There is evidence of effacement of the left lateral ventricle. Soft tissue prominence in the sphenoid sinus and ethmoid sinuses. CT/STROKE Brain/Head without Cont IMPRESSION: Subdural hematoma as well as acute left subdural hematoma with shift of the midline from left to right measuring 1 cm. N.B. : The above Results were Read Back by Truman Child MD to [facility] and understanding confirmed on 08/04/2022 15:42:04 (ET). Electronically Signed: Truman Child MD at 15:43 EDT ,
--- NOTE | 2022-08-04 15:14 | CT_ITS ---
STUDY: CTA HEAD AND NECK WITH CONTRAST REASON FOR EXAM: Male, 82 years old. Neuro deficit, acute, stroke suspected RADIATION DOSAGE (If Supplied By Facility): CTDIvol = ( 22.45 ) mGy, DLP = ( 774.06 ) mGycm TECHNIQUE: CT angiography was performed with a multi-detector CT scanner. Data acquisition was obtained from the skull base through the vertex following intravenous administration of IV 100mL [id number]. MIP images were reconstructed from the axial data set. Post-processing of the angiographic images was performed, with multiplanar reformation and 3D reconstruction. Individualized dose optimization techniques were used for this CT. COMPARISON: No relevant priors. FINDINGS: Normal bilateral petrous carotid arteries. There is calcified plaque formation of the right cavernous carotid artery, without a cross-sectional luminal stenosis. There is calcified plaque formation of the left cavernous carotid artery, without a cross-sectional luminal stenosis. Normal right A1 segments of the anterior cerebral artery. Normal left A1 segments of the anterior cerebral artery. Normal intact anterior communicating artery (ACOM). Normal bilateral A2 segments of the anterior cerebral arteries. Normal right M1 and M2 segments of the middle cerebral arteries, with a normal M1 bifurcation. Normal left M1 and M2 segments of the middle cerebral arteries, with a normal M1 bifurcation. Normal right posterior communicating artery (PCOM). Normal left posterior communicating artery (PCOM). Normal bilateral vertebral arteries. Normal basilar artery with a normal basilar bifurcation. The visualized bilateral superior cerebellar (SCA) arteries are normal. Normal bilateral P1, P2 and visualized P3 segments of the posterior cerebral arteries. There is no demonstrated aneurysm of the [place]. An endotracheal tube is seen within the trachea. There is evidence of a large left pleural effusion with a infiltration in the left upper lobe. AORTIC ARCH: Normal visualized aortic arch. Normal origins of the brachiocephalic, left common carotid, and left subclavian arteries. RIGHT CAROTID ARTERIES: Normal right common carotid artery (CCA). Normal right common carotid bulb. Normal origin of the right internal carotid (ICA) artery without a hemodynamically significant stenosis. Normal visualized cervical portion of the right internal carotid artery. Normal origin of the right external carotid artery (ECA). LEFT CAROTID ARTERIES: Normal left common carotid artery (CCA). Normal left common carotid bulb. Normal origin of the left internal carotid (ICA) artery without a hemodynamically significant stenosis. Normal visualized cervical portion of the left internal carotid artery. Normal origin of the left external carotid artery (ECA). VERTEBRAL ARTERIES: Normal bilateral vertebral arteries. CT/STROKE CTA Head AND Neck W/Con IMPRESSION: Normal CTA Head and neck with contrast. N.B. : The above Results were Read Back by Truman Child MD to [facility] and understanding confirmed on 08/04/2022 15:52:30 (ET). Electronically Signed: Truman Child MD at 15:53 EDT ,
[2022-08-04 15:24] LABS: Absolute Neutrophil Count 12.7 X10^3/uL (2.0-7.7); Basophil# 0.05 X10^3/uL; Basophil% 0.3 % (0-1); Eosinophil# 0.01 X10^3/uL; Eosinophils% 0.1 % (0-5); Hematocrit 40.3 % (40-54); Hemoglobin 13.7 g/dL (13.0-16.5); Mean Corpuscular Hgb 34.6 pg (27.0-32.0); Mean Corpuscular Volume 101.8 fL (80-94); Mean Platelet Vol. 9.5 fl (6.2-12.0); Monocyte# 1.63 X10^3/uL; Monocyte% 9.1 % (0-10); NRBC Flagged by Analyzer 0.1 % (0-5); Neutrophil # 12.72 X10^3/uL (2.7-7.7); Neutrophil % 71.1 % (47-70); POSITIVE DIFFERENTIAL YES; Platelet Count 312 K/mm3 (150-450); RBC Distribution Width CV 15.5 % (11.6-14.6); RBC Distribution Width SD 58.1 fl (35.1-43.9); Red Blood Count 3.96 M/mm3 (4.6-6.2); White Blood Count 17.9 K/mm3 (4.4-11.0)
--- NOTE | 2022-08-04 15:34 | ED.RN ---
NIH scale order completed per verbal order from Dr. White d/t pt being intubated. See Dr. White's note
[2022-08-04 15:36] LABS: Differential Indicated SCAN CRITERIA MET
[2022-08-04] MEDS: Propofol 10MG/Ml 1,000 MG/100 ML Bottle 7.5 MG CONT INF (15:42)
[2022-08-04 15:43] LABS: Anion Gap 11 (5-15); BUN 31 mg/dL (7-18); BUN/Creat Ratio 19.1 RATIO (10-20); Calcium,Total 8.7 mg/dL (8.5-10.1); Chloride 109 mmol/L (98-107); Creatinine, Serum 1.62 mg/dL (0.70-1.30); EST Glomerular Filtration Rate 44 mL/min (>60); Est Glom Filt Rate - Afr Amer 53 mL/min (>60); Glucose 144 mg/dL (74-106); Potassium 3.5 mmol/L (3.5-5.1); Sodium Level 140 mmol/L (136-145); Troponin-I HS 14 pg/mL (3.0-78.0)
[2022-08-04 15:47] LABS: CPK Total, Creatine Kinase 484 U/L (39-308); Triglycerides 198 mg/dL
--- NOTE | 2022-08-04 15:52 | EX.ED.DYSGE1 ---
HPI History of Present Illness Chief Complaint: Unresponsive Detail of Chief Complaint: Nausea and vomiting then syncope then head trauma Informant: spouse/S.O. and EMS Onset/Context/Timing Onset: Hours Context: Sudden Onset Timing: Continuous Quality: Patient arrives with a depressed level of conscious. Current Severity: Severe Maximum Severity: Severe Worsened by: Anticoagulant Relieved by: Nothing Associated Symptoms Associated Symptoms: Aspiration Narrative Narrative: Patient is an elderly male. He was at the eye doctor's office. He began to vomit. He had a syncopal episode. He hit his head. He was brought to the emergency department. His GCS is 9. No other history is available. Prior similar symptoms: No Recent Illness/Hospitalization: Yes [facility] Medical History Atherosclerotic heart disease of [place] coronary artery without angina pectoris Bilateral pulmonary embolism Cancer Chronic back pain Chronic kidney disease (CKD) Coronary artery disease DVT (deep venous thrombosis) Essential hypertension Former smoker Gout History of ST elevation myocardial infarction (STEMI) Hyperlipidemia Hypertension Myocardial infarct Obesity Old inferior wall myocardial infarction Prostate cancer Pulmonary embolism Right bundle branch block (RBBB) Varicose veins of right lower extremity Home Medications allopurinol 300 mg tablet 300 mg PO DAILY gout 03/02/21 [History Last Taken Unknown] aspirin 81 mg tablet,delayed release (Adult Aspirin Regimen) 81 mg PO DAILY heart health 03/02/21 [History Last Taken Unknown] atorvastatin 40 mg tablet 40 mg PO QHS cholesterol 03/02/21 [History Last Taken Unknown] bisoprolol fumarate 5 mg tablet 5 mg PO DAILY blood pressure 03/02/21 [History Last Taken Unknown] cholecalciferol (vitamin D3) 125 mcg (5,000 unit) capsule 125 mcg PO DAILY vitamin 03/02/21 [History Last Taken Unknown] coenzyme Q10 100 mg capsule (Co Q-10) 100 mg PO DAILY supplement 03/02/21 [History Last Taken Unknown] fexofenadine 180 mg tablet (Leslye Allergy) 180 mg PO DAILY allergies 03/02/21 [History Last Taken Unknown] hydrochlorothiazide 12.5 mg tablet 12.5 mg PO DAILY diuretic 03/02/21 [History Last Taken Unknown] losartan 50 mg tablet 50 mg PO DAILY blood pressure 03/04/21 [History Last Taken 04/06/21] apixaban 5 mg tablet (Eliquis) 5 mg PO BID #60 tabs 06/11/22 [Rx Last Taken Unknown] albuterol sulfate 90 mcg/actuation aerosol inhaler (Ventolin HFA) 2 puff inhalation Q4H PRN PRN Wheezing ##1 08/02/22 [Rx Last Taken Unknown] levofloxacin 500 mg tablet 500 mg PO DAILY #7 tabs 08/02/22 [Rx Last Taken Unknown] prednisone 20 mg tablet 60 mg PO DAILY #15 TABLETS 08/02/22 [Rx Last Taken Unknown] Allergy/AdvReac Type Severity Reaction Status Date / Time Sulfa (Sulfonamide Allergy unknown Verified 08/02/22 14:34 Antibiotics) Family History Father Heart disease Myocardial infarction, Onset Age: 70 Mother Dementia Surgical History History of appendectomy History of cholecystectomy History of coronary artery stent placement (08/05/15) History of left heart catheterization (04/06/21) History of total knee arthroplasty Status post endovenous radiofrequency ablation (RFA) of saphenous vein (04/2008) Social History Smoking Status: Former smoker how long ago did patient quit smoking: Quit 1976, started 17 y/o, smoked 2 ppd until quit. alcohol intake: never substance use type: does not use ROS ROS ED Review of Systems ROS Unobtainable: due to mental status EXAM Physical Exam Const Vital Signs: 08/04/22 15:00 08/04/22 15:08 08/04/22 15:26 Temperature 97.1 F L Temperature Source Temporal Pulse Rate 97 Respiratory Rate 31 H Respiratory Effort Non-Labored Respiratory Depth Shallow Respiratory Pattern Blood Pressure 182/96 H Blood Pressure Mean 124 Pulse Ox 96 Oxygen Delivery Method Non-Rebreather Mechanical Ventilator Oxygen Flow Rate (L/min) 15 Fraction of Inspired Oxygen (FIO2) 08/04/22 15:40 08/04/22 16:15 08/04/22 15:08 Temperature Temperature Source Pulse Rate 83 84 88 Respiratory Rate 18 16 14 Respiratory Effort Respiratory Depth Respiratory Pattern Normal Blood Pressure 170/95 H 174/85 H Blood Pressure Mean 120 114 Pulse Ox 97 96 99 Oxygen Delivery Method Mechanical Ventilator Mechanical Ventilator Oxygen Flow Rate (L/min) Fraction of Inspired Oxygen (FIO2) 80 08/04/22 16:31 08/04/22 16:47 08/04/22 17:00 Temperature Temperature Source Pulse Rate 87 90 90 Respiratory Rate 19 H 16 13 Respiratory Effort Respiratory Depth Respiratory Pattern Blood Pressure 137/82 H 143/79 H Blood Pressure Mean 100 100 Pulse Ox 97 96 94 Oxygen Delivery Method Mechanical Ventilator Mechanical Ventilator Mechanical Ventilator Oxygen Flow Rate (L/min) Fraction of Inspired Oxygen (FIO2) 08/04/22 17:17 08/04/22 17:24 08/04/22 17:30 Temperature Temperature Source Pulse Rate 87 89 87 Respiratory Rate 16 15 21 H Respiratory Effort Respiratory Depth Respiratory Pattern Blood Pressure 133/73 H 132/80 H 143/91 H Blood Pressure Mean 93 97 108 Pulse Ox 94 95 95 Oxygen Delivery Method Mechanical Ventilator Mechanical Ventilator Mechanical Ventilator Oxygen Flow Rate (L/min) Fraction of Inspired Oxygen (FIO2) 08/04/22 17:56 Temperature Temperature Source Pulse Rate 82 Respiratory Rate 18 Respiratory Effort Respiratory Depth Respiratory Pattern Blood Pressure 153/88 H Blood Pressure Mean 109 Pulse Ox 96 Oxygen Delivery Method Oxygen Flow Rate (L/min) Fraction of Inspired Oxygen (FIO2) Positive well nourished, well developed and obese General Appearance ED: well developed, diaphoretic and pallor; Negative for cyanotic or NAD Nutritional Appearance: obese HEENT Reports moist mucous membranes HEENT Narrative: Large food particles posterior pharynx. Ears normal. No hemotympanum. No CSF otorrhea or rhinorrhea. Patient apparently bit his tongue. Eyes PERRL Eyes Narrative: There is no nystagmus. There is no subconjunctival hemorrhage. Neck no lymphadenopathy and no JVD Neck Narrative: Is midline. There is upper respiratory sounds consistent with aspiration of food bolus. Chest Wall inspection of chest normal and palpation of chest normal Resp No clear to auscultation bilaterally Auscultation: rhonchi Cardio regular rate, regular rhythm, S1 normal heart sound, S2 normal heart sound and no murmurs GI normal to inspection, nondistended, normoactive bowel sounds; Negative for hepatosplenomegaly Narrative: Normal external genitalia Extremity normal to inspection Neuro No oriented x3, No CN's II-XII intact bilaterally and No no sensory deficits noted Sensorium / Orientation: orientation impaired; Negative for alert Motor Exam: Negative for strength 5/5 throughout Skin Skin Narrative: Laceration occiput. General Skin Exam: pallor; Negative for jaundice Lesions: No lesion noted MDM MDM MDM Narrative Medical decision making narrative: She presents by ambulance with a depressed level of conscious. Patient opened his eyes to noxious stimuli. He makes loud sounds to noxious stimuli. He moves his left side to noxious stimuli. History is suggestive of subarachnoid hemorrhage and concern patient has a traumatic injury since he is not moving his right side as well. Patient has bilateral Minsky sign. History & Record Review Discussion w/independent historian: EMS personnel and Significant other Additional record(s) reviewed:: Prior inpatient record, Prior outpatient record, Prior ED visit and Prior labs Lab Data Attestation: I reviewed the patient's lab results. Lab results narrative: White count is elevated 7 9000. There is slight shift.. Electrolyte panel is marked. BUN 31 creatinine 1.62 with a GFR of 44. CO2 20 with a normal. Total CPK is 498. Labs: Laboratory Results - last 24 hr 08/04/22 08/04/22 08/04/22 15:00 15:04 15:04 WBC 17.9 H RBC 3.96 L Hgb 13.7 Hct 40.3 MCV 101.8 H MCH 34.6 H MCHC 34.0 RDW Std Deviation 58.1 H RDW Coeff of Lucia 15.5 H Plt Count 312 MPV 9.5 Immature Gran % (Auto) 0.400 Neut % (Auto) 71.1 H Lymph % (Auto) 19.0 [place] % (Auto) 9.1 Eos % (Auto) 0.1 Baso % (Auto) 0.3 Absolute Neuts (auto) 12.7 H Absolute Lymphs (auto) 3.40 Nucleated RBC % 0.1 Differential Comment SCANNED Diff Path Review May foll PT 17.5 H INR 1.5 APTT 23.2 L Sodium Potassium Chloride Carbon Dioxide Anion Gap BUN Creatinine Estim Creat Clear Calc Est GFR (MDRD) Af Amer Est GFR (MDRD) Non-Af BUN/Creatinine Ratio Glucose Calcium Total Creatine Kinase Troponin I High Sens Triglycerides Urine Opiates Screen NEGATIVE Urine Methadone Screen NEGATIVE Ur Barbiturates Screen NEGATIVE Ur Phencyclidine Scrn NEGATIVE Ur Amphetamines Screen NEGATIVE MDMA (Ecstasy) Screen NEGATIVE U Benzodiazepines Scrn NEGATIVE Urine Cocaine Screen NEGATIVE U Cannabinoids Screen NEGATIVE Ur Drug Screen Comment 08/04/22 08/04/22 15:04 15:04 WBC RBC Hgb Hct MCV MCH MCHC RDW Std Deviation RDW Coeff of Lucia Plt Count MPV Immature Gran % (Auto) Neut % (Auto) Lymph % (Auto) [place] % (Auto) Eos % (Auto) Baso % (Auto) Absolute Neuts (auto) Absolute Lymphs (auto) Nucleated RBC % Differential Comment Diff Path Review PT INR APTT Sodium 140 Potassium 3.5 Chloride 109 H Carbon Dioxide 20.0 L Anion Gap 11 BUN 31 H Creatinine 1.62 H Estim Creat Clear Calc 36.80 Est GFR (MDRD) Af Amer 53 L Est GFR (MDRD) Non-Af 44 L BUN/Creatinine Ratio 19.1 Glucose 144 H Calcium 8.7 Total Creatine Kinase 484 H Troponin I High Sens 14 Triglycerides 198 Urine Opiates Screen Urine Methadone Screen Ur Barbiturates Screen Ur Phencyclidine Scrn Ur Amphetamines Screen MDMA (Ecstasy) Screen U Benzodiazepines Scrn Urine Cocaine Screen U Cannabinoids Screen Ur Drug Screen Comment Radiography Diagnostic Testing: Clinical Impression(s) from Imaging Studies Brain CT 08/04/22 15:13 IMPRESSION: Subdural hematoma as well as acute left subdural hematoma with shift of the midline from left to right measuring 1 cm. N.B. : The above Results were Read Back by Truman Child MD to Mihir White and understanding confirmed on 08/04/2022 15:42:04 (ET). Electronically Signed: Truman Child MD at 15:43 EDT , ADDENDUM: 08/04/22 1550 IMPRESSION: Subdural hematoma as well as acute left subdural hematoma with shift of the midline from left to right measuring 1 cm. N.B. : The above Results were Read Back by Truman Child MD to Mihir White and understanding confirmed on 08/04/2022 15:42:04 (ET). Electronically Signed: Truman Child MD at 15:43 EDT , Head/Neck CTA 08/04/22 15:14 IMPRESSION: Normal CTA Head and neck with contrast. N.B. : The above Results were Read Back by Truman Child MD to Mihirjade White and understanding confirmed on 08/04/2022 15:52:30 (ET). Electronically Signed: Truman Child MD at 15:53 EDT , ADDENDUM: 08/04/22 1600 IMPRESSION: Normal CTA Head and neck with contrast. N.B. : The above Results were Read Back by Truman Child MD to [facility] and understanding confirmed on 08/04/2022 15:52:30 (ET). Electronically Signed: Truman Child MD at 15:53 EDT , Chest X-Ray 08/04/22 16:30 IMPRESSION: Diffuse opacification of left hemithorax secondary to pleural fluid and parenchymal consolidation.. Status post intubation. Electronically Signed: Yaya Bautista MD at 16:43 EDT , Chest x-ray reveals endotracheal tube to be approximate 3 cm above the mel. OG is in proper position. Patient may have evidence of aspiration left upper lobe. Since he has no fever or white count he was not treated with antibiotics. Rhythm Strip Rhythm Strip: Sinus Rhythm Rate: 83 Ectopy: PVC(s) (Occasional) EKG Initial EKG: Attestation: I personally reviewed and interpreted this EKG as follows: Interpretation: Sinus Rhythm (Rate is 87. There are premature atrial complexes noted. DE interval is 206 ms. QRS duration 136 ms. QRS morphology is consistent with right bundle branch block. QT interval is 392 ms. [place] is normal) Treatment and Re-Evaluation :: technician test systems contact me to look at his CAT scan. Patient has a subarachnoid hemorrhage as well as a subdural hematoma with shift. Since patient is single episode and suspect he may have had a subarachnoid hemorrhage that preceded the fall and subdural we will obtain a CTA as well. Since patient is on Eliquis he received Kcentra. He also received mannitol 2 mg/kg. Case was discussed with the neuro vascular neurosurgeon at [facility] Dr. Leon. Comments:: NIH stroke scale: 1 a two-point 1B2 point 1C2 point 2 0 3 unable to determine 4 0 5 a left arm 0 5 the right arm 3 6 a left leg 0 6B right leg 4 7 unable to determine 8 1 9 three-point 10 unknown 11 two-point Procedures Intubations Intubation Method: orotracheal Intubation Verification: Positive color change and Bilateral breath sounds confirmed Intubation Complications: no complications, apparent aspiration (Prior to arrival) and O2 saturation decreased (To 80%) Other Procedures Procedure(s): Gastric tube was placed and nursing staff. [place] was placed per nursing staff. Critical Care Time Critical Care Time: Yes Critical care time (excluding procedures): 30-74 minutes (42 minutes), Including time spent: (History, physical, documentation, bedside care, review of prior records, discussion with , discussion with transfer line at [facility], discussion with neurovascular surgeon at [facility].), Discussing w/Consultants, Arranging Admission or Transfer and Performing Direct Patient Care at Bedside Discharge Plan Triage Chief Complaint: Unresponsive ED Provider: Mihir White Dx/Rx/DC Orders Clinical Impression: Subarachnoid hemorrhage, Essential hypertension, Acute subdural hematoma, Aspiration into airway, Anticoagulant long-term use, Coronary artery disease, Hx of pulmonary embolus Prescriptions: No Action allopurinol 300 mg tablet 300 mg PO DAILY atorvastatin 40 mg tablet 40 mg PO QHS bisoprolol fumarate 5 mg tablet 5 mg PO DAILY hydrochlorothiazide 12.5 mg tablet 12.5 mg PO DAILY fexofenadine [Leslye Allergy] 180 mg tablet 180 mg PO DAILY aspirin [Adult Aspirin Regimen] 81 mg tablet,delayed release (DR/EC) 81 mg PO DAILY coenzyme Q10 [Co Q-10] 100 mg capsule 100 mg PO DAILY cholecalciferol (vitamin D3) 125 mcg (5,000 unit) capsule 125 mcg PO DAILY losartan 50 mg tablet 50 mg PO DAILY prednisone 20 mg tablet 60 mg PO DAILY Qty: 15 0RF levofloxacin [levofloxacin] 500 mg tablet 500 mg PO DAILY Qty: 7 0RF albuterol sulfate [Ventolin HFA] 90 mcg/actuation HFA aerosol inhaler 2 puff inhalation Q4H PRN PRN (Reason: Wheezing) Qty: 1 0RF Eliquis 5 mg tablet 5 mg PO BID Qty: 60 11RF Primary Care Provider: Jorge Gill Referrals: Jorge Gill DO [Primary Care Provider] - Disposition Disposition: Acute Care Hospital Discharge Location: [facility] Discharge Date/Time: 08/04/22 18:13
[2022-08-04 15:55] LABS: Amphetamine Urine VISTA NEGATIVE (<1000 ng/mL); Barbiturate Urine VISTA NEGATIVE (< 200 ng/mL); Benzodiazepine Urine VISTA NEGATIVE (< 200 ng/mL); Cocaine Urine VISTA NEGATIVE (< 300 ng/mL); Ecstacy Urine VISTA NEGATIVE (< 500 ng/mL); Methadone Urine VISTA NEGATIVE (< 300 ng/mL); PCP Urine VISTA NEGATIVE (< 25 ng/mL); THC Urine VISTA NEGATIVE (< 50 ng/mL); Vista UDS pH Range 4
[2022-08-04] MEDS: HUMAN PROTHROMBIN COMPLX(PCC) 2,500 UNIT in Viaflex Bag 1 BAG 500 UNIT IV (16:02)
[2022-08-04 16:05] LABS: International Normalized Ratio 1.5; Partial Thromboplast Time 23.2 Seconds (24.1-36.2); Prothrombin Time (Protime)PT. 17.5 SECONDS (11.7-14.9)
[2022-08-04 16:07] LABS: Differential Comment SCANNED
[2022-08-04] MEDS: Labetalol (Prefilled) 20 MG/4 ML IV (16:14)
--- NOTE | 2022-08-04 16:30 | RAD_ITS ---
STUDY: X-RAY CHEST REASON FOR EXAM: Male, 82 years old. Intubation TECHNIQUE: AP portable COMPARISON: 05/04/2023 FINDINGS: Diffuse opacification of the left hemithorax secondary to combination of pleural fluid and consolidation of left upper and lower lobes. . Endotracheal tube noted with tip 4 cm proximal to mel. Borderline cardiomegaly.. Normal mediastinum and josafat. Normal visualized pulmonary arteries. Normal visualized aortic arch and descending thoracic aorta. Dorsal spine demonstrates degenerative change. Normal visualized ribs, clavicles, and shoulders. Nasogastric tube is seen with tip in stomach There is no demonstrated abnormality of the visualized soft tissue structures of the upper abdomen. RAD/Chest 1 View (Portable) IMPRESSION: Diffuse opacification of left hemithorax secondary to pleural fluid and parenchymal consolidation.. Status post intubation. Electronically Signed: Yaya Bautista MD at 16:43 EDT ,
--- NOTE | 2022-08-04 16:31 | ED.RN ---
[facility] WILL BE HERE AT 6 PM
--- NOTE | 2022-08-04 17:39 | ED.RN ---
TRANSPORT TEAM AT BEDSIDE.
--- NOTE | 2022-08-04 17:55 | ED.RN ---
propofol medication given to [facility] for transport.
[2022-08-05 13:24] LABS: Pathologist Review Reviewed
== END 2022-08-04 18:13 | disposition short-term general hospital (02) ==
PROVIDERS: Emergency Provider Emergency Medicine; PCP Family Medicine; Visit Provider Emergency Medicine
DX: I62.01 Nontraumatic acute subdural hemorrhage (principal); I60.9 Nontraumatic subarachnoid hemorrhage, unspecified; I12.9 Hypertensive chronic kidney disease with stage 1 through stage 4 chronic kidney disease, or unspecified chronic kidney disease; S09.90XA Unspecified injury of head, initial encounter; I25.10 Atherosclerotic heart disease of native coronary artery without angina pectoris; E78.5 Hyperlipidemia, unspecified; R55 Syncope and collapse; Z87.891 Personal history of nicotine dependence; Z79.01 Long term (current) use of anticoagulants; R11.2 Nausea with vomiting, unspecified; N18.9 Chronic kidney disease, unspecified; M54.9 Dorsalgia, unspecified; I25.2 Old myocardial infarction; Z86.711 Personal history of pulmonary embolism; Z79.899 Other long term (current) drug therapy
CPT/HCPCS: 31500; 51702; 70450; 70496; 70498; 71045; 80048; 80307; 82550; 84478; 84484; 85025; 85610; 85730; 93005; 94002; 99252; 99285; J7030; J7168; Q9967; A4216; G0463; J3490